=== PATIENT | male | born 1985 | race Caucasian/White ===

== ENCOUNTER 2022-10-24 08:19 | Emergency (ER) | payer OTHER, SELFPAY ==
--- NOTE | ~2022-10-24 | XR_ITS ---
EXAMINATION: XR LUMBOSACRAL SPINE CLINICAL INFORMATION: Back pain. COMPARISON: None available. TECHNIQUE: Three views of the lumbosacral spine. FINDINGS: There is mild straightening of the normal cervical lordosis with normal spinal alignment. L5-S1 shows mild disc space narrowing and minimal grade 1 retrolisthesis. The remainder of the intervertebral disc spaces are unremarkable. The vertebral bodies are intact. The soft tissues are unremarkable. XR/XR lumbar spine 2-3V IMPRESSION: L5-S1 mild disc space narrowing and minimal grade 1 retrolisthesis may be degenerative in nature. No acute abnormality.
[2022-10-24 08:33] VITALS: BP 129/72; PULSE 73; RESP 18; TEMP 36.1; O2SAT 98; BMI 29.9
--- NOTE | 2022-10-24 09:05 | ED.BACK ---
HPI - Back Pain/Injury General Chief Complaint: Back Pain/Injury Stated Complaint: back pain Time Seen by Provider: 10/24/22 08:56 Source: patient and RN notes reviewed Mode of arrival: ambulatory Limitations: no limitations History of Present Illness HPI Narrative: This is a 37-year-old male, without any reported past medical history, who presents to the emergency department today with complaints of low back pain since yesterday. Patient denies any recent trauma, heavy lifting or falls. Patient reports that the pain radiates into his right buttocks and worsens with movement and with palpation. He denies any fevers, chills, chest pain, shortness of breath, abdominal pain, nausea, diarrhea, urinary incontinence, dysuria, hematuria, bowel incontinence or constipation. He denies any numbness or tingling. He denies any saddle paresthesia. No history of similar symptoms in the past. He works in [employer] in the [employer], so he often has to sit for prolonged periods of time. No other complaints or concerns at this time. MD elicited complaint: back pain Timing: constant Severity: moderate Similar Symptoms Previously: No Quality: aching Location: lumbar spine and thoracic spine Radiation: buttocks Exacerbating factors: movement and walking Relieving factors: none Associated symptoms: denies other symptoms Treatments prior to arrival: cold therapy and acetaminophen Work related injury: No Related Data Previous Rx's Medication Instructions Recorded cyclobenzaprine 10 mg tablet 10 mg PO BEDTIME PRN muscle spasm 10/24/22 #10 tabs oxycodone 5 mg capsule 5 mg PO BID PRN severe pain #5 caps 10/24/22 prednisone 20 mg tablet 40 mg PO DAILY #10 tabs 10/24/22 Allergies Allergy/AdvReac Type Severity Reaction Status Date / Time No Known Allergies Allergy Verified 10/24/22 09:03 Review of Systems Review of Systems: Yes all other systems are reviewed and are negative [facility] Social History Social History Advance Directives: No Physical Exam Vital Signs: Vital Signs: Last Vital Signs Temp 97.0 F 10/24/22 08:33 Pulse 73 10/24/22 08:33 Resp 18 10/24/22 08:33 BP 129/72 10/24/22 08:33 Pulse Ox 98 10/24/22 08:33 O2 Del Method Room Air 10/24/22 08:33 BMI result Body Mass Index 29.9 Const: General: cooperative, comfortable, no acute distress and well groomed Limitations: no limitations HEENT: Head: Yes normocephalic and Yes atraumatic Eyes: Conjunctivae: conjunctivae normal Sclerae: sclerae normal Pupils: Equal, round and reactive pupils present EOM: EOMs intact bilaterally Neck: Other: No cervical midline spine tenderness Neck: Yes normal visual inspection and Yes full ROM Chest: Chest palpation & inspection: normal inspection of the chest Resp: Effort & Inspection: normal respiratory effort and able to speak in complete sentences Back/Spine/Pelvis: Other: Mild tenderness to palpation overlying lower midline spine. Tenderness to palpation overlying the right paraspinous muscles with spasm and over the right SI joint. Negative straight leg raise. Strength in lower extremities is 5/5. Skin: General skin exam: no rashes or lesions noted Neuro: Cranial nerves: Yes Equal, round and reactive pupils present Course Reevaluation(s) Reevaluation #1: Lumbar spine x-ray reviewed as L5-S1 mild disc space narrowing and minimal grade 1 retrolisthesis may be degenerative in nature. No acute abnormality. Due to patient's level of discomfort, will treat with prednisone PO, flexeril and oxycodone as needed for severe pain. Advised to take [id number] ibuprofen and Tylenol as needed for pain.. Advised to follow-up with his primary care physician regarding this visit. Encouraged gentle stretching, ice and heat. Patient warned against red flag symptoms and when to return. Patient understands and agrees with plan. Medications Administered Discontinued Medications Generic Name Dose Route Start Last Admin Trade Name Lamontq PRN Reason Stop Dose Admin Ketorolac Tromethamine 30 mg 10/24/22 09:03 10/24/22 09:09 Ketorolac Tromethamine 30 Mg/Ml Vial IM 10/24/22 09:04 30 mg ONCE ONE Administration Medical Decision Making Medical Decision Making [facility] Narrative: 37 yo M presenting to the emergency department with complaints of atraumatic low back pain since yesterday. On exam, patient has tenderness to lumbar midline spine, and tenderness overlying the right paraspinous muscles and right SI joint. Negative straight leg raise. No back pain red flags. Patient is ambulatory with slow, steady gait. Plan: Toradol 30mg IM, and Lumbar spine x-rays ordered. Differential Diagnosis Differential Diagnoses: The differential diagnosis associated with the presentation includes Sciatica, lumbar spasm, lumbar strain, lumbar contusion, cauda equina Independent Interpretation I performed an independent interpretation of an: Plain X-Ray Interpretation: EXAMINATION: XR LUMBOSACRAL SPINE CLINICAL INFORMATION: Back pain. COMPARISON: None available. TECHNIQUE: Three views of the lumbosacral spine. FINDINGS: There is mild straightening of the normal cervical lordosis with normal spinal alignment. L5-S1 shows mild disc space narrowing and minimal grade 1 retrolisthesis. The remainder of the intervertebral disc spaces are unremarkable. The vertebral bodies are intact. The soft tissues are unremarkable. XR/XR lumbar spine 2-3V IMPRESSION: L5-S1 mild disc space narrowing and minimal grade 1 retrolisthesis may be degenerative in nature. No acute abnormality. Discharge Plan Discharge Clinical Impression: Sciatica, Low back pain Patient Disposition: Home, Self-Care Instructions: Sciatica (ED), Acute Low Back Pain (ED) Additional Instructions: Your x-ray today showed L5-S1 mild disc space narrowing and minimal grade 1 retrolisthesis. Please take medications as directed. Take kygi-[id number] ibuprofen and Tylenol as directed as needed for pain. You may take oxycodone as prescribed only for severe pain. Please be advised that flexeril and oxycodone may cause drowsiness. Do not drink alcohol or drive when taking these medications. Please follow-up with your primary care physician. Ice, heat, and gentle stretching may help with the pain. If any new or worsening symptoms occur, please return for re-evaluation. Prescriptions: New prednisone 20 mg tablet 40 mg PO DAILY Qty: 10 0RF cyclobenzaprine 10 mg tablet 10 mg PO BEDTIME PRN (Reason: muscle spasm) Qty: 10 0RF oxycodone 5 mg capsule 5 mg PO BID PRN (Reason: severe pain) Qty: 5 0RF Rx Instructions: Partial Fill upon patient request. Interventions: ED Discharge Assessment Last Done: 10/24/22 10:55 Discharge Date/Time: 10/24/22 10:55
[2022-10-24] MEDS: Ketorolac Tromethamine 30 MG/ML VIAL IM (09:09)
== END 2022-10-24 10:55 | disposition home or self-care (01) ==
PROVIDERS: Emergency Provider Emergency Medicine
DX: M54.41 Lumbago with sciatica, right side (principal); Z79.899 Other long term (current) drug therapy
CPT/HCPCS: 72100; 96372; 99283; 99284; J1885

== ENCOUNTER 2023-03-19 08:13 | Outpatient (AMB) | payer OTHER, SELFPAY ==
[2023-03-19 08:35] VITALS: BP 112/82; PULSE 72; O2SAT 99; BMI 31.5
--- NOTE | 2023-03-19 08:35 | A.OFFPC_ITS ---
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 Reports previous PCP 5 years ago in [place]. Medical history significant for right low back pain and right-sided sciatica. Patient reports right buttock pain radiate to his knee and ankle which is constant for the past 2 months now, although this pain started almost 6 months ago. He denies any injury. Reports taking ibuprofen 600 mg 3 times a day and Tylenol with no improvement in pain. He has finished physical therapy couple weeks ago for 1.5 months with no improvement. He also saw chiropractor. Denies changes in bowel/bladder, no numbness or tingling. Nothing seems to improve this pain. No shortness of breath or chest pain. Patient reports he needs physical therapy order for insurance purposes although he already finished physical therapy for back/right- sided sciatica pain. Denies other concerns at this visit. Patient works in [employer] in [employer]. 09/2022 XR/XR lumbar spine 2-3V IMPRESSION: L5-S1 mild disc space narrowing and minimal grade 1 retrolisthesis may be degenerative in nature. No acute abnormality. [facility] Surgical History H/O splenectomy Hx of tonsillectomy [place] teeth extracted Family History Mother No problems noted. Father No problems noted. Social History Housing: House Patient Tobacco Use Status: Never used Tobacco service: Yes Current occupational status: employed Cognitive needs: No Hearing needs: No Vision needs: No Questionnaire PHQ-9 Over the last 2 weeks, how often have you been bothered by any of the following problems? 1. Little interest or pleasure in doing things: not at all 2. Feeling down, depressed, or hopeless: not at all 3. Trouble falling or staying asleep, or sleeping too much: not at all 4. Feeling tired or having little energy: not at all 5. Poor appetite or overeating: not at all 6. Feeling bad about yourself - or that you are a failure or have let yourself or your family down: not at all 7. Trouble concentrating on things, such as reading the newspaper or watching television: not at all 8. Moving or speaking so slowly that other people could have noticed. Or the opposite - being so fidgety or restless that you have been moving around a lot more than usual: not at all 9. Thoughts that you would be better off or of hurting yourself in some way: not at all Total score: 0 Depression Screening Interpretation: Negative 85274 - PHQ-9 Billing: Yes Source: Developed by Drs. Aleksandar Zamora, Kelsey Hamlin, Gian Schneider and colleagues, with an educational gardenia from [employer]. AUDIT C Alcohol Use Questionnaire (AUDIT-C) 1. How often do you have a drink containing alcohol?: Never 3. How often do you have six or more drinks on one occasion?: Never Total Score: 0 Score Reviewed/Action Taken: No RASHI-7 AMB Questionnaire RASHI-7 Date RASHI - 7 assessed: 03/19/23 Feeling nervous, anxious, or on edge: 0 = Not at all Not being able to stop or control worryin = Not at all Worrying too much about different things: 0 = Not at all Trouble relaxin = Not at all Being so restless that it is hard to sit still: 0 = Not at all Becoming easily annoyed or irritable: 0 = Not at all Feeling afraid as if something awful might happen: 0 = Not at all Total RASHI-7 score (0-4 normal; 5-9 mild; 10-14 moderate; 15-21 severe): 0 Source: Developed by Drs. Aleksandar Zamora, Kelsey Hamlin, Gian Schneider and colleagues, with an educational gardenia from [employer]. RASHI-7 Assessment Billing RASHI-7 Assessment Tool: RASHI-7 Assessment 92886 Review of Systems Const Denies body aches, Denies chills, Denies fever(s) and Denies headache(s) Eyes Denies change in vision ENT Denies dizziness, Denies otalgia, Denies headache(s), Denies nasal discharge, Denies sinus pain and Denies sore throat Card Denies chest pain, Denies edema, Denies lightheadedness and Denies dyspnea Resp Denies cough, Denies dyspnea and Denies wheezing GI Denies abdominal pain, Denies constipation, Denies diarrhea, Denies nausea and Denies vomiting Denies hematuria, Denies difficulty urinating, Denies dysuria and Denies flank pain Musc Reports back pain, Denies myalgias, Denies arthralgias, Denies joint swelling, Denies numbness and Denies tingling Skin/Breast Denies rash Neuro Denies dizziness, Denies headache(s), Denies numbness and Denies tingling Aller/Immun Denies wheezing Physical exam (Primary Care) Vital Signs: Last Vital Signs Pulse 72 03/19/23 08:35 BP 112/82 03/19/23 08:35 Pulse Ox 99 03/19/23 08:35 Oxygen Delivery Method Room Air 03/19/23 08:35 BMI result Body Mass Index 31.5 Tobacco/Smoking Status: Tobacco use Status Tobacco use date assessed 03/19/23 03/19/23 08:41 Patient Tobacco Use Status Never used Tobacco 03/19/23 08:41 PHQ-9: PHQ-9 Score PHQ-9: Total score 0 03/19/23 08:51 Depression Screening Interpretation: Negative Const General: cooperative and no acute distress Orientation/consciousness: patient oriented x3 HENMT Head: Yes normocephalic and Yes atraumatic Ears: TM's normal bilaterally Face and sinus: Yes sinuses nontender Mouth: oropharynx normal and moist mucous membranes Throat: Yes posterior oropharynx normal Eyes General: appearance normal, both eyes and all related structures Pupils: Equal, round and reactive pupils present EOM: EOMs intact bilaterally Neck Neck: Yes normal visual inspection, Yes full ROM and Yes no lymphadenopathy Thyroid: Thyroid normal Resp Effort & Inspection: normal respiratory effort and able to speak in complete sentences Auscultation: clear to auscultation bilaterally, no crackles, no rales, no rhonchi and no wheezes Cardio Rate: regular rate Rhythm: regular rhythm Heart sounds: S1 normal heart sound present, S2 normal heart sound present and no murmurs GI Palpation (GI): Soft to palpation, not firm, nontender, no guarding, not rigid and no hepatosplenomegaly Auscultation: normal bowel sounds General: No CVA tenderness Back/Spine/Pelvis Back: No CVA tenderness Thoracic/Lumbar Spine: pain with thoraco-lumbar ROM, No paraspinal muscle tenderness, No thoracic spinal tenderness, No lumbar spinal tenderness and straight leg raise positive (Right) Skin General skin exam: no rashes or lesions noted Neuro Other: Mild limp noted General: patient oriented x3 Cranial nerves: Yes Equal, round and reactive pupils present Extrem General: Yes full ROM and No edema Assessment and Plan Assessment & Plan (1) Low back pain: Code(s): M54.50 - Low back pain, unspecified Plan: Same as below (2) Right sided sciatica: Code(s): M54.31 - Sciatica, right side Plan: Will treat with prednisone 40 mg for 5 days, ibuprofen 800 mg every 8 hours p.r.n., and cyclobenzaprine 10 mg b.i.d. p.r.n.-educated about drowsiness. Patient has finished physical therapy with no improvement in pain. Will refer urgently to pain management. Encouraged heat/cold packs p.r.n.. Signs and symptoms reviewed when to notify provider or go to the emergency department. Patient agreed with the plan. (3) Encounter to establish care: Code(s): Z76.89 - Persons encountering health services in other specified circumstances Plan: Patient presents to establish care, blood work ordered Plan Follow-up in 3 months for PE labs Orders: Orders Vitamin B12 and Folate Today Z76.89 - Persons encountering health services in other specified circumstances Comprehensive [place]. Panel Fast Today Z76.89 - Persons encountering health services in other specified circumstances Lipid Panel Today Z76.89 - Persons encountering health services in other specified circumstances TSH reflex Free T4 Today Z76.89 - Persons encountering health services in other specified circumstances Vitamin D 25-OH Total Today Z. - Persons encountering health services in other specified circumstances Complete Blood Count Auto Diff Today Z. - Persons encountering health se rvices in other specified circumstances PT Evaluation and Treatment Today M54.31 - Sciatica, right side, M54.50 - Low back pain, unspecified Referrals Pain Management Referral M54.31 - Sciatica, right side, M54.50 - Low back pain, unspecified Medications: New ibuprofen 800 mg PO Q8H PRN 21 tabs 0RF pain M54.31 - Sciatica, right side Changed From cyclobenzaprine 10 mg PO BEDTIME PRN 10 tabs 0RF muscle spasm M54.31 - Sciatica, right side To cyclobenzaprine 10 mg PO BID PRN 14 tabs 0RF muscle spasm M54.31 - Sciatica, right side Refilled prednisone 40 mg (2 x 20 mg) PO DAILY 10 tabs 0RF M54.31 - Sciatica, right side Coding Level of Care Code New Pt Level 3 (00343) Diagnoses Low back pain M54.50 Right sided sciatica M54.31 Encounter to establish care Z. Additional Codes RASHI-7 Assessment Billing - RASHI-7 Assessment Tool: RASHI-7 Assessment [id number] ([id number])
== END 2023-03-19 09:07 | disposition home or self-care (01) ==
PROVIDERS: PCP Nurse Practitioner Family; Visit Provider Nurse Practitioner Family
DX: M54.50 Low back pain, unspecified (principal); M54.31 Sciatica, right side; Z76.89 Persons encountering health services in other specified circumstances
CPT/HCPCS: 99203

== ENCOUNTER 2023-03-19 09:24 | Outpatient (REF) | payer OTHER, SELFPAY ==
[2023-03-19 09:36] LABS: MANUAL DIFF FLAG NO
[2023-03-19 10:02] LABS: Basophils Absolute Auto 0.1 X10*3/uL (0.0-0.2); Eosinophils Absolute Auto 0.3 X10*3/uL (0.0-0.4); Eosinophils Percent Auto 3.6 % (0-4); Hematocrit 42.9 % (42.0-52.0); Hemoglobin 13.8 g/dl (14.0-18.0); Imm Gran Abs Auto 0.02 X10*3/uL (0.00-0.03); Imm Gran Pct Auto 0.2 % (0.0-0.4); Lymphocytes Absolute Auto 2.9 X10*3/uL (1.2-4.9); Lymphocytes Percent Auto 33.7 % (20-40); Mean Corpuscular HGB Conc 32.2 g/dl (31.0-36.0); Mean Corpuscular Hemoglobin 27.8 pg (27.0-33.0); Mean Corpuscular Volume 86.3 fL (80.0-98.0); Mean Platelet Volume 9.7 fL (9.4-12.4); Monocytes Absolute Auto 1.1 X10*3/uL (0.1-1.2); Monocytes Percent Auto 12.8 % (2-11); Neutrophils Absolute Auto 4.2 x10*3/uL (2.0-8.3); Neutrophils Percent Auto 48.7 % (45-73); Platelet Count 430 X10*3/uL (160-400); Red Blood Count 4.97 X10*6/uL (4.60-5.80); Red Cell Distribution Width 13.4 % (11.0-16.0); White Blood Count 8.7 X10*3/uL (4.8-10.8)
[2023-03-19 10:37] LABS: Alanine Aminotransferase 19 U/L (0-40); Albumin Level 4.5 g/dL (3.5-5.0); Alkaline Phosphatase 53 U/L (39-117); Anion Gap 11 (12-20); Aspartate Amino Transferase 16 U/L (5-37); Bilirubin Total 0.5 mg/dL (0.0-1.0); Blood Urea Nitrogen 21 mg/dL (9-16); Calcium 9.5 mg/dL (8.4-10.2); Carbon Dioxide 24 mmol/L (22-29); Chloride 108 mmol/L (96-108); Cholesterol 197 mg/dL (<200); Estimated Glomerular Filt Rate > 60; Glucose Fasting 89 mg/dL (60-99); HDL Cholesterol 46 mg/dL (>40); LDL Cholesterol Calculated 139 mg/dL (<100); Potassium 4.1 mmol/L (3.3-5.1); Sodium 139 mmol/L (135-145); Total Protein 7.7 g/dL (6.5-8.0); Triglycerides 61 mg/dL (<150)
[2023-03-19 10:57] LABS: TSH reflex Free T4 1.26 uIU/mL (0.32-4.0); Vitamin D 25-OH Total 18.6 ng/mL (>30)
[2023-03-19 10:58] LABS: Folate 5.2 ng/mL (> or = 4.0); Vitamin B12 319 pg/mL (200-900)
== END 2023-03-19 09:25 | disposition home or self-care (01) ==
LOC: HO.LAB 09:24
PROVIDERS: PCP Nurse Practitioner Family; Visit Provider Nurse Practitioner Family
DX: M54.31 Sciatica, right side (principal); M54.50 Low back pain, unspecified; Z76.89 Persons encountering health services in other specified circumstances; E55.9 Vitamin D deficiency, unspecified; M54.16 Radiculopathy, lumbar region
CPT/HCPCS: 36415; 80053; 80061; 82306; 82607; 82746; 84443; 85025

== ENCOUNTER 2023-03-28 08:45 | Outpatient (AMB) | payer OTHER, SELFPAY ==
--- NOTE | 2023-03-28 08:49 | A.OFFVIS_ITS ---
Intake Vital Signs 03/28/23 09:00 Height 5 ft 11 in Weight 227 lb BMI 31.7 BP 128/80 Blood Pressure Location Lt brachial Position Sitting Respiration 18 Pulse 95 Pulse Source Pulse Oximeter Pulse Oximetry (%) 98 Oxygen Delivery Method Room Air Intake Visit Reasons: Sciatica, right side Allergies No Known Allergies Allergy (Verified 03/28/23 09:03) HPI HPI Comments History of Present Illness Details Bronson is a very pleasant 37 year old male who presents to the office today for evaluation and management of his right lower back pain. Patient reports the pain started 6 months ago after he went running. Patient was evaluated in the ER and given NSAIDs, muscle relaxer and prednisone. He states the pain improved some, 3 months ago he attempted to run again and the pain returned. Pain is constant, severe and radiates into buttocks, laterally down right leg into the ankle and the right foot to the toes. Patient completed PT without relief 1 month ago. He was seen by PCP 2 weeks ago and given muscle relaxers and prednisone that he has taken without effect. He is currently taking Tylenol and ibuprofen that does not help. He has tried chiropractor which also provided no relief. Reports the pain today is 9/10 with average over the last month rating 9/10. Recent x-ray reviewed, results below. He denies red flag symptoms including loss of bowel, bladder or saddle anesthesia. In terms of muscle damage condition is described as shooting, spasming, sharp, stabbing, throbbing and squeezing. Patient reports the pain is negatively impacting his judgment of life, general activity, mood, work, recreation activities, relationships with people, sleep, walking and ?everything?. Patient currently employed full-time in the [employer]. He denies current use of alcohol, tobacco or illicit substances. Patient denies pacemaker, defibrillator or implantable devices. [facility] Surgical History H/O splenectomy Hx of tonsillectomy [place] teeth extracted Family History Mother No problems noted. Father No problems noted. Social History Housing: House Patient Tobacco Use Status: Never used Tobacco service: Yes Current occupational status: employed Cognitive needs: No Hearing needs: No Vision needs: No Review of Systems Const All systems reviewed & are unremarkable except as noted in HPI and below Physical Exam Vital Signs: Last Vital Signs Pulse 95 03/28/23 09:00 Resp 18 03/28/23 09:00 BP 128/80 03/28/23 09:00 Pulse Ox 98 03/28/23 09:00 Oxygen Delivery Method Room Air 03/28/23 09:00 BMI result Body Mass Index 31.7 General: awake, alert, oriented. Answers questions appropriately. appears uncomfortable. Skin: warm, dry, intact HEENT: Normocephalic. Hearing intact. Cardiac: External chest normal in appearance. Respiratory: No cough, audible wheezing or stridor. Abdomen: without gross distension. Neurological: Oriented to person, place, time and situation. Thought process intact. Psychiatric: Appropriate mood and affect. Good judgment and insight. Back/Spine/Pelvis Other: Lumbar exam: Able to stand on bilateral tiptoes and bilateral heels with increased pain Able to transition from sit to stand unassisted, with slow, deliberate movements Ambulates with antalgic gait Visual inspection without gross abnormality Tender to palpation over right lumbar paraspinal muscles Nontender to palpation over ROM: limited secondary to pain with extension to 5 degrees. flexion to 30 de grees Strength: 4/5 BLE Sensation: intact and symmetric BLE DTR: intact and symmetric Straight leg raises postive bilaterally CLARE positive bilaterally limited physical exam d/t significant pain with provocative testing Results Reviewed Results Reviewed: 10/24/2022 FINDINGS: There is mild straightening of the normal cervical lordosis with normal spinal alignment. L5-S1 shows mild disc space narrowing and minimal grade 1 retrolisthesis. The remainder of the intervertebral disc spaces are unremarkable. The vertebral bodies are intact. The soft tissues are unremarkable. XR/XR lumbar spine 2-3V IMPRESSION: L5-S1 mild disc space narrowing and minimal grade 1 retrolisthesis may be degenerative in nature. No acute abnormality. Assessment & Plan Assessment & Plan (1) Lumbar radiculopathy: Code(s): M54.16 - Radiculopathy, lumbar region Plan Bronson is a very pleasant 29-year-old male who presented to the office today for evaluation management of his right lower back pain. History, physical exam provocative testing consistent with right lumbar radiculopathy. MRI lumbar spine without contrast ordered to further evaluate. Tizanidine 2mg po BID as needed for muscle spasms, do not take with any other muscle relaxers or [employer] depressants. Topical compound cream sent to specialty pharmacy, patient instructed on use. Lidocaine patches sent, do not use with compound cream. TENS unit ordered. Patient instructed on use. Handout with detailed instructions provided to patient. Discussed options for treatment including diagnostic interventional testing, epidural steroid injections, peripheral nerve stimulation with Sprint, RFA and more permanent neuromodulation. Patient will follow up in the office after MRI. Providing no MRI findings that warrant neurosurgical evaluation will plan for Fluoroscopy guided right L5-S1 TFESI with local anesthetic. All questions and concerns have been answered and patient agrees with the plan. Follow up after MRI, sooner if needed. Orders: Orders MR lumbar spine wo con Today M54.16 - Radiculopathy, lumbar region Medications: New tizanidine 2 mg PO BID PRN 60 tabs 0RF muscle spasticity M54.16 - Radiculopathy, lumbar region cream base no.105 (bulk) (Base W301 cream) Diclofenac 5%, Baclofen 5%, Cyclobenzaprine 2%, Gabapentin 6%, Bupivacaine 2% SIG: apply pea-sized amount 3- 5 times daily to painful areas as needed 180 grams 0RF lumbar radiculopathy lidocaine 5% leave on most painful area for up to 12 hrs Do not use with topical compound cream 1 patch topical DAILY 30 ea 0RF Discontinued cyclobenzaprine Discontinued Reason: Doctor's Order 10 mg PO BID PRN 14 tabs 0RF muscle spasm M54.31 - Sciatica, right side Coding Level of Care Code New Pt Level 4 (81229) Diagnoses Lumbar radiculopathy M54.16
[2023-03-28 09:00] VITALS: BP 128/80; PULSE 95; RESP 18; O2SAT 98; BMI 31.7
== END 2023-03-28 09:11 | disposition home or self-care (01) ==
PROVIDERS: PCP Nurse Practitioner Family; Visit Provider Registered Nurse Emergency
DX: M54.16 Radiculopathy, lumbar region (principal)
CPT/HCPCS: 99204

== ENCOUNTER → 2023-03-28 08:45 | Outpatient (BNVA) | payer OTHER, SELFPAY | PROVIDERS: PCP Nurse Practitioner Family; Visit Provider Registered Nurse Emergency | DX: M54.16 Radiculopathy, lumbar region (principal) | CPT/HCPCS: 99202 ==

== ENCOUNTER 2023-04-08 13:47 | Outpatient (AMB) | payer OTHER, SELFPAY ==
--- NOTE | 2023-04-08 13:49 | A.OFFPC_ITS ---
Vital Signs 04/08/23 13:52 Height 5 ft 11 in Weight 226 lb 2 oz BMI 31.5 BP 120/70 Blood Pressure Location Lt brachial Position Sitting Pulse 96 Pulse Source Pulse Oximeter Pulse Oximetry (%) 97 Oxygen Delivery Method Room Air Intake Visit Reasons: right leg pain for 2 months Intake Note: Patient is here today for right leg pain ongoing for 2 months. OTC, lidocaine patches nor tizanidine is not helping with pain. Corrosion Prevention Metal Sprayer Required: No Spring Former Hand: Not Required per policy Accompanied by: Self / Same As Patient Allergies No Known Allergies Allergy (Verified 04/08/23 13:51) Tobacco use date assessed: 04/08/23 HPI HPI Comments History of Present Illness Details 37-year-old male past medical history si gnificant for right-sided sciatic on lumbar radiculopathy. Patient of Nadia REBOLLAR presents today for lumbar radiculopathy radiating down right leg which started approximately 6 months ago. Patient has completed physical therapy in the past and with no improvement and has tried muscle relaxers, prednisone, Tylenol and ibuprofen and chiropractor with no relief. Patient was then referred to pain management, review of the notes. Patient was seen by pain management MRI of the lumbar spine was ordered and patient reports was completed over the weekend. Patient was recommended by Pain Management to use Lidoderm patches, Tens unit and muscle relaxers as needed. Based on MRI results they further discussed steroid injections, peripheral nerve stimulator with sprint, RFA and more permanent neuromodulation. Patient was advised to follow-up with them after MRI. Patient advised to call Pain Management to follow-up with them [facility] Surgical History [place] teeth extracted Hx of tonsillectomy H/O splenectomy Family History (Updated 04/08/23 @ 13:49 by UZIEL Grant) Mother No problems noted. Father No problems noted. Social History (Updated 04/08/23 @ 13:50 by UZIEL Grant) Housing: House Alcohol intake: never Patient Tobacco Use Status: Never used Tobacco e-Cigarette/Vaping Use: Never Used Second Hand Smoke Exposure: No service: Yes Current occupational status: employed Cognitive needs: No Hearing needs: No Vision needs: No Questionnaire RASHI-7 AMB Questionnaire RASHI-7 Date RASHI - 7 assessed: 03/19/23 Source: Developed by Drs. Aleksandar Zamora, Kelsey Hamlin, Gian Schneider and colleagues, with an educational gardenia from [employer]. Review of Systems Const Denies chills, Denies fatigue, Denies fever(s) and Denies poor appetite Eyes Denies no additional complaints ENT Reports Normal hearing present Card Denies chest pain, Denies syncope, Denies rapid heart rate and Denies dyspnea Resp Denies cough and Denies dyspnea GI Denies change in stool character, Denies constipation, Denies diarrhea, Denies nausea and Denies vomiting Denies dysuria, Denies urinary frequency and Denies urinary urgency Neuro Reports Normal hearing present, Denies confusion and Denies syncope Psych Denies confusion Endo Denies fatigue Physical exam (Primary Care) Vital Signs: Last Vital Signs Pulse 96 04/08/23 13:52 BP 120/70 04/08/23 13:52 Pulse Ox 97 04/08/23 13:52 Oxygen Delivery Method Room Air 04/08/23 13:52 BMI result Body Mass Index 31.5 Tobacco/Smoking Status: Tobacco use Status Tobacco use date assessed 04/08/23 04/08/23 13:51 Patient Tobacco Use Status Never used Tobacco 04/08/23 13:51 e-Cigarette/Vaping Use Never Used 04/08/23 13:51 Const General: No confusion Orientation/consciousness: No confusion HENMT Head: Yes normocephalic and Yes atraumatic Eyes Conjunctivae: conjunctivae normal Chest Chest palpation & inspection: normal inspection of the chest Resp Effort & Inspection: normal respiratory effort Auscultation: clear to auscultation bilaterally, no crackles, no rhonchi and no wheezes Cardio Rate: regular rate Rhythm: regular rhythm Heart sounds: S1 normal heart sound present and S2 normal heart sound present GI Inspection: Yes normal to inspection Neuro General: No confusion Cranial nerves: Yes Normal hearing present Extrem General: No edema Assessment and Plan Assessment & Plan (1) Lumbar radiculopathy: Code(s): M54.16 - Radiculopathy, lumbar region Plan: Patient advised to follow up with pain management for MRI results and further recommendations. Coding Level of Care Code Est Pt Level 3 (58794) Diagnoses Lumbar radiculopathy M54.16
[2023-04-08 13:52] VITALS: BP 120/70; PULSE 96; O2SAT 97; BMI 31.5
== END 2023-04-08 14:17 | disposition home or self-care (01) ==
PROVIDERS: PCP Nurse Practitioner Family; Visit Provider Nurse Practitioner Family
DX: M54.16 Radiculopathy, lumbar region (principal)
CPT/HCPCS: 99213

== ENCOUNTER 2023-04-24 08:45 | Outpatient (AMB) | payer OTHER, SELFPAY ==
[2023-04-24 08:53] VITALS: BP 148/98; PULSE 95; RESP 18; O2SAT 97; BMI 32.4
--- NOTE | 2023-04-24 08:53 | A.OFFVIS_ITS ---
Intake Vital Signs 3 04/24/23 08:53 Height 5 ft 11 in Weight 232 lb BMI 32.4 BP 148/98 H Blood Pressure Location Lt radial Position Sitting Respiration 18 Pulse 95 Pulse Source Pulse Oximeter Pulse Oximetry (%) 97 Oxygen Delivery Method Room Air Intake Visit Reasons: Discuss MRI Results/CONFIRMED Allergies No Known Allergies Allergy (Verified 04/24/23 08:54) HPI HPI Comments 2 History of Present Illness0 Details Bronson presents back to the office today for follow up lumbar radiculopathy. MRI reviewed with patient today. Patient reports that pain persists, does not improve with any medications including NSAIDS, lidocaine patches or muscle relaxers. Pain constant, 8/10 today, with radiation down the right leg to the toes. He has been working but states he is in constant pain throughout the day. Denies red flag symptoms including loss of bowel, bladder or saddle anesthesia. Prior: Bronson is a very pleasant 37 year old male who presents to the office today for evaluation and management of his right lower back pain. Patient reports the pain started 6 months ago after he went running. Patient was evaluated in the ER and given NSAIDs, muscle relaxer and prednisone. He states the pain improved some, 3 months ago he attempted to run again and the pain returned. Pain is constant, severe and radiates into buttocks, laterally down right leg into the ankle and the right foot to the toes. Patient completed PT without relief 1 month ago. He was seen by PCP 2 weeks ago and given muscle relaxers and prednisone that he has taken without effect. He is currently taking Tylenol and ibuprofen that does not help. He has tried chiropractor which also provided no relief. Reports the pain today is 9/10 with average over the last month rating 9/10. Recent x-ray reviewed, results below. He denies red flag symptoms including loss of bowel, bladder or saddle anesthesia. In terms of muscle damage condition is described as shooting, spasming, sharp, stabbing, throbbing and squeezing. Patient reports the pain is negatively impacting his judgment of life, general activity, mood, work, recreation activities, relationships with people, sleep, walking and ?everything?. Patient currently employed full-time in [employer]. He denies current use of alcohol, tobacco or illicit substances. Patient denies pacemaker, defibrillator or implantable devices. [facility] Surgical History [place] teeth extracted Hx of tonsillectomy H/O splenectomy Family History (Updated 04/08/23 @ 13:49 by UZIEL Grant) Mother No problems noted. Father No problems noted. Social History (Updated 04/08/23 @ 13:50 by UZIEL Grant) Housing: House Alcohol intake: never Patient Tobacco Use Status: Never used Tobacco e-Cigarette/Vaping Use: Never Used Second Hand Smoke Exposure: No service: Yes Current occupational status: employed Cognitive needs: No Hearing needs: No Vision needs: No Review of Systems Const All systems reviewed & are unremarkable except as noted in HPI and below Physical Exam Vital Signs: Last Vital Signs Pulse 95 04/24/23 08:53 Resp 18 04/24/23 08:53 BP 148/98 H 04/24/23 08:53 Pulse Ox 97 04/24/23 08:53 Oxygen Delivery Method Room Air 04/24/23 08:53 BMI result Body Mass Index 32.4 General: awake, alert, oriented. Answers questions appropriately. patient appears uncomfortable, tearful throughout visit. Skin: warm, dry, intact HEENT: Normocephalic. Hearing intact. Cardiac: External chest normal in appearance. Respiratory: No cough, audible wheezing or stridor. Abdomen: without gross distension. Neurological: Oriented to person, place, time and situation. Thought process intact. Psychiatric: Appropriate mood and affect. Good judgment and insight. Back/Spine/Pelvis Other: Lumbar exam: Able to stand on bilateral tiptoes and bilateral heels but with pain Able to transition from sit to stand unassisted, slowly with pain increase Ambulates with antalgic gait Visual inspection without gross abnormality Tender to palpation over right lumbar paraspinal muscles Straight leg raises with and without dorsiflexion positive CLARE positive bilaterally limited physical exam d/t significant pain with provocative testing Results Reviewed Results Reviewed: 04/05/2023 Assessment & Plan Assessment & Plan (1) Lumbar radiculopathy: Code(s): M54.16 - Radiculopathy, lumbar region (2) Lumbar spondylosis: Code(s): M47.816 - Spondylosis without myelopathy or radiculopathy, lumbar region Plan Bronson is a very pleasant 37 year old male who presented back to the office today for follow up, review of MRI. Patient continues to endorse significant pain that is refractory to PT, NSAIDs, lidocaine patches, TENS unit and muscle relaxers. He is visible uncomfortable, tearful during visit and favoring right leg. Will send short script of Percocet 5/325mg to take as needed for pain. Patient advised on precautions for use. He has been advised this is a one time prescription and not something we will continue prescribing. Work note provided to patient. Discussed options for treatment including diagnostic interventional testing, epidural steroid injections, peripheral nerve stimulation with Sprint, RFA and more permanent neuromodulation. Schedule for Fluoroscopy guided right L5-S1 TFESI with propofol sedation given patients inability to remain prone and stationary for the injection under local anesthetic only. Neurosurgery consult placed for evaluation due to patient's significant sustained discomfort and disability. All questions and concerns have been answered and patient agrees with the plan. Follow up after injection, sooner if needed. Orders: Referrals 2 Neuro Spine Referral M54.16 - Radiculopathy, lumbar region Medications: New 2 oxycodone-acetaminophen 5-325 mg (Percocet) Partial Fill upon patient request. 1 tab PO TID PRN 20 tabs 0RF pain Coding Level of Care Code Est Pt Level 4 (41090) Diagnoses Lumbar radiculopathy M54.16 Lumbar spondylosis M47.816
== END 2023-04-24 09:14 | disposition home or self-care (01) ==
PROVIDERS: PCP Nurse Practitioner Family; Visit Provider Registered Nurse Emergency
DX: M54.16 Radiculopathy, lumbar region (principal); M47.816 Spondylosis without myelopathy or radiculopathy, lumbar region
CPT/HCPCS: 99214

== ENCOUNTER → 2023-04-24 08:45 | Outpatient (BNVA) | payer OTHER, SELFPAY | PROVIDERS: PCP Nurse Practitioner Family; Visit Provider Registered Nurse Emergency | DX: M47.26 Other spondylosis with radiculopathy, lumbar region (principal) | CPT/HCPCS: 99212 ==

== ENCOUNTER 2023-04-25 10:53 | Day surgery (SDC) | payer OTHER, SELFPAY ==
--- NOTE | ~2023-04-25 | FL_ITS ---
EXAMINATION: XR FLUOROSCOPY WITH IMAGES CLINICAL INFORMATION: L5-S1 TFESI, right. COMPARISON: None available. TECHNIQUE: Fluoroscopy Supervised By: Dr. Aden Gregg. Fluoroscopy Time: 0.2 minutes. Cumulative Dose: 12.1 mGy. DAP: 3.30 Gycm2. Images: 2. FINDINGS: Images demonstrate needle/probe placement and contrast injection adjacent to the right L5-S1 vertebrae. FL/FL guidance in OR IMPRESSION: Fluoroscopy guidance for pain management procedure
[2023-04-25 11:02] VITALS: BMI 32.1
[2023-04-25 11:03] VITALS: BP 147/97; PULSE 95; RESP 16; TEMP 37.5; O2SAT 96
[2023-04-25] MEDS: Lactated Ringers 1,000 ML 80 ML IVCONT (11:42)
--- NOTE | 2023-04-25 12:22 | P.CONAN_ITS ---
HPI - Anesthesia Eval Consult details Narrative: fortransforaminal tone PMFSH Active Problems Active Problems: All Active Problems (Updated 04/24/23 @ 10:05 by Ayse Ruiz APRN, [employer]) Lumbar spondylosis (Acute) Lumbar radiculopathy (Acute) Low vitamin D level (Acute) Right sided sciatica (Acute) Encounter to establish care (Acute) Family History Family History Mother No problems noted. Father No problems noted. Family history of problems with anesthesia: No Surgical History Surgical History [place] teeth extracted Hx of tonsillectomy H/O splenectomy History of Problems with Anesthesia: No Social History Social History Housing: House Alcohol intake: never Patient Tobacco Use Status: Never used Tobacco e-Cigarette/Vaping Use: Never Used Second Hand Smoke Exposure: No Use of substances other than those prescribed or required for medical reasons: No Are you DNR?: No Advance Directives: No Advance Directives Information Provided: Yes service: Yes Current occupational status: employed Cognitive needs: No Hearing needs: No Vision needs: No Meds Allergies Allergy/AdvReac Type Severity Reaction Status Date / Time No Known Allergies Allergy Verified 04/25/23 10:59 Active Medications: Current Medications Lactated Ringer's (Lr) 1,000 mls @ 80 mls/hr IVCONT .[id number] DOROTHY Last Admin: 04/25/23 11:42 Dose: 80 mls/hr Exam Exam Date and Time: April 25, 2023 1222 Height,Weight and Vital Signs: Height 5 ft 11 in Weight 104.326 kg Last Vital Signs Temp 99.5 F 04/25/23 11:03 Pulse 95 04/25/23 11:03 Resp 16 04/25/23 11:03 BP 147/97 H 04/25/23 11:03 Pulse Ox 96 04/25/23 11:03 O2 Del Method Room Air 04/25/23 11:03 Airway Mallampati Class: II TM Dist: >3cm Neck ROM: Full Heart: rrr Lungs: cta Assessment and Plan Assessment Anesthesia Assessment: Anesthesia Plan Discussed and Chart Reviewed Final Anesthetic Review Family History of Problems with Anesthesia: No History of Problems with Anesthesia: No NPO: Yes ASA Class: II Final Preanesthetic Review: No Changes in Pt Med Stat, Meds/Allgs Chart Reviewed, Consent Obtained/Reviewed and Anes Risks/Benef Reviewed Patient Risk: Low Procedure Risk: Intermediate Anesthetic Plan Anesthetic Plan: MAC: Disposition: Standard PACU
--- NOTE | 2023-04-25 12:23 | MHC.SHP ---
Pre-Procedural Eval Section A Date of Service: 04/25/23 The patient is an INPATIENT: No Changes since office visit: Yes Patient answered all questions The History & Physical has been completed within 30 days and I have reviewed it.: No Section B Chief Complaint: Radiculopathy, lumbar region Details of Present Illness: as above Relevant Family History (Specify if Yes): No Relevant Social History: None Present Medications: None Medical History: No relevant PMH History of Previous Operations: No relevant previous surgery Allergies: Allergies Allergy/AdvReac Type Severity Reaction Status Date / Time No Known Allergies Allergy Verified 04/25/23 10:59 Review of Systems Sugical H&P ROS: Negative: Constitution, Cardiovascular, Respiratory, Neurological, Psychiatric, Hem-Onc, Allergic/Immunologic, Gastrointestinal, Genitourinary, Integumentary, Endocrine and Eyes/Ears/Nose/Throat and Yes, Specify: Musculoskeletal (disc degeneration lumbar) Exam Surgical H&P Exam: Normal: HEENT, Normal: Heart, Normal: Lungs, Normal: Extremities, Normal: Abdomen, Normal: Skin and Normal: Neurological Plan Diagnosis/Plan: Unchanged I have reviewed the history and physical and performed a pertinent physical examination on my patient. No changes have occurred unless specified. Time Spent With Patient Time: Total time managing care of this patient today ___5_ minutes.
[2023-04-25 13:02] VITALS: BP 122/87; PULSE 89; RESP 16; TEMP 37.2; O2SAT 96
--- NOTE | 2023-04-25 13:05 | P.BOP_ITS ---
Brief Operative Note Date of Service: 04/25/23 Pre-op diagnosis: radiculopathy lumbar Post-op diagnosis: same Procedure: TFESI L5- S1 on the right. Surgeon: Aden Gregg MD Anesthesia: MAC Was an Staple Fiber Washer used for this Procedure?: No Estimated blood loss (mL): 0 Condition: stable Disposition: PACU
--- NOTE | 2023-04-25 13:06 | W.PM.OPN ---
Operative Note Operative Note Date of Service: 04/25/23 Narrative: right L5- S1 Transforaminal epidural steroid injection Informed consent was thoroughly explained to the patient before the procedure. The patient came to the operating room. he was positioned prone on operating table with a pillow under her abdomen. ASA monitors were applied and patient was minimally to moderately sedated. I was able to maintain conversation with this patient throughout the procedure. Time-out was performed delineating correct site and side of the procedure, nature of the injection, name and date of of the patient. The lower back of the patient was prepped with ChloraPrep and draped with sterile utility towels. C-arm was brought over the operating field and sq picture of L5 vertebra was demonstrated on the screen. The Right side was chosen as the side of the injection. Tilting machine ipsilateral to the right at the level of L5 the most prominent picture of the left S1 superior articular process was obtained on the screen. At the projection of the lateral border of the SAP S1 to the skin small amount of lidocaine 1% 3-4 cc was injected to anesthetize the skin and s/q tissues. After that 5 in 22 gauge Quincke point needle was inserted through the skin wheal and was advanced to the L5-S1 foramina on anterior posterior and oblique views intermittently.When needle tip contacted the bone the needle was deviated laterally and after that medially to advance it below the SAP and into the L5- S1 foramina. When tip of the needle entered foramina projection on AP view injection of the contrast was performed demonstrating epidural spread of the contrast. After that injection of the treatment medicine 3 cc of preservative-free lidocaine 1% mixed with Kenalog 40 mg was injected into the foramina. Injection of the contrast and injection of the treatment medicine was observed live on the screen. No intrathecal and no intravascular spread of the contrast was noted. The needle was removed and bandaid was applied the patient tolerated procedure well.
[2023-04-25 13:17] VITALS: BP 131/76; PULSE 87; RESP 16; O2SAT 96
[2023-04-25 13:32] VITALS: BP 120/84; PULSE 94; RESP 16; O2SAT 96
[2023-04-25 13:46] VITALS: BP 129/80; PULSE 86; RESP 16; TEMP 37.2; O2SAT 96
== END 2023-04-25 14:15 | disposition home or self-care (01) ==
PROVIDERS: PCP Nurse Practitioner Family; Visit Provider Anesthesiology
PROC: (CPT 64483; principal; 2023-04-25 12:30)
DX: M54.16 Radiculopathy, lumbar region (principal); M47.816 Spondylosis without myelopathy or radiculopathy, lumbar region; Z79.899 Other long term (current) drug therapy
CPT/HCPCS: 64483; J2250; J3301; Q9965; Q9967

== ENCOUNTER → 2023-04-25 10:53 | Outpatient (BNV) | payer OTHER, SELFPAY | PROVIDERS: PCP Nurse Practitioner Family; Visit Provider Anesthesiology | DX: M54.16 Radiculopathy, lumbar region (principal) | CPT/HCPCS: 64483 ==

== ENCOUNTER 2023-05-27 08:07 | Outpatient (AMB) | payer OTHER, SELFPAY ==
[2023-05-27 08:27] VITALS: PULSE 110; RESP 12; O2SAT 95; BMI 31.9
--- NOTE | 2023-05-27 08:27 | A.OFFVIS_ITS ---
Intake Vital Signs 3 05/27/23 08:27 Height 5 ft 11 in Weight 229 lb BMI 31.9 Blood Pressure Location Rt brachial Position Sitting Respiration 12 Pulse 110 H Pulse Source Pulse Oximeter Pulse Oximetry (%) 95 Oxygen Delivery Method Room Air Intake Visit Reasons: S/p (R) L5-S1 TFESI 04/25/23/confirmed Allergies No Known Allergies Allergy (Verified 05/27/23 08:28) Medication List - Last Reconciled 05/27/23 by Amber Hernandes LPN cholecalciferol (vitamin D3) 25 mcg PO DAILY lidocaine 5% 1 patch topical DAILY HPI HPI Comments 2 History of Present Illness0 Details Bronson presents to the office today for follow up L5-S1 TFESI 04/25/23. Patient reports 50% improvement in pain since the injection. He states since procedure he has been able to stand for longer than 1-2 minutes without excruciating pain. He reports improvement in function, mobility and ability to perform activities of daily living. He does endorse continued pain just not as bad . He has an appointment with neurosurgery in 1 week for evaluation. Prior: Bronson presents back to the office today for follow up lumbar radiculopathy. MRI reviewed with patient today. Patient reports that pain persists, does not improve with any medications including NSAIDS, lidocaine patches or muscle relaxers. Pain constant, 8/10 today, with radiation down the right leg to the toes. He has been working but states he is in constant pain throughout the day. Denies red flag symptoms including loss of bowel, bladder or saddle anesthesia. Prior: Bronson is a very pleasant 37 year old male who presents to the office today for evaluation and management of his right lower back pain. Patient reports the pain started 6 months ago after he went running. Patient was evaluated in the ER and given NSAIDs, muscle relaxer and prednisone. He states the pain improved some, 3 months ago he attempted to run again and the pain returned. Pain is constant, severe and radiates into buttocks, laterally down right leg into the ankle and the right foot to the toes. Patient completed PT without relief 1 month ago. He was seen by PCP 2 weeks ago and given muscle relaxers and prednisone that he has taken without effect. He is currently taking Tylenol and ibuprofen that does not help. He has tried chiropractor which also provided no relief. Reports the pain today is 9/10 with average over the last month rating 9/10. Recent x-ray reviewed, results below. He denies red flag symptoms including loss of bowel, bladder or saddle anesthesia. In terms of muscle damage condition is described as shooting, spasming, sharp, stabbing, throbbing and squeezing. Patient reports the pain is negatively impacting his judgment of life, general activity, mood, work, recreation activities, relationships with people, sleep, walking and ?everything?. Patient currently employed full-time in [employer]. He denies current use of alcohol, tobacco or illicit substances. Patient denies pacemaker, defibrillator or implantable devices. [facility] Surgical History [place] teeth extracted Hx of tonsillectomy H/O splenectomy Family History Mother No problems noted. Father No problems noted. Social History Housing: House Alcohol intake: never Patient Tobacco Use Status: Never used Tobacco e-Cigarette/Vaping Use: Never Used Second Hand Smoke Exposure: No service: Yes Current occupational status: employed Cognitive needs: No Hearing needs: No Vision needs: No Review of Systems Const All systems reviewed & are unremarkable except as noted in HPI and below Physical Exam Vital Signs: Last Vital Signs Pulse 110 H 05/27/23 08:27 Resp 12 05/27/23 08:27 Pulse Ox 95 05/27/23 08:27 Oxygen Delivery Method Room Air 05/27/23 08:27 BMI result Body Mass Index 31.9 General: awake, alert, oriented. Answers questions appropriately. patient appears uncomfortable, tearful throughout visit. Skin: warm, dry, intact HEENT: Normocephalic. Hearing intact. Cardiac: External chest normal in appearance. Respiratory: No cough, audible wheezing or stridor. Abdomen: without gross distension. LS: able to transition from sit to stand unassisted, does utilize the arms of the chair for support ambulates with slow steady gait Neurological: Oriented to person, place, time and situation. Thought process intact. Psychiatric: Appropriate mood and affect. Good judgment and insight. Results Reviewed Results Reviewed: 04/05/2023 Assessment & Plan Assessment & Plan (1) Lumbar radiculopathy: Code(s): M54.16 - Radiculopathy, lumbar region (2) Lumbar spondylosis: Code(s): M47.816 - Spondylosis without myelopathy or radiculopathy, lumbar region Plan Bronson is a very pleasant 37 year old male who presented back to the office today for follow up after L5-S1 TFESI 04/25/2023 Patient failed conservative therapy including PT, NSAIDs, muscle relaxers, TENS unit. He reports 50% improvement after TFESI with some improvement in mobility and function though he continues to endorse daily pain that impedes his work, physical activities and mood. Follow up with Neurosurgery as planned All questions and concerns have been answered and patient agrees with the plan. Follow up in the office for worsening pain, can repeat TFESI after 07/25/23. Coding Level of Care Code Est Pt Level 3 (25145) Diagnoses Lumbar radiculopathy M54.16 Lumbar spondylosis M47.816
== END 2023-05-27 08:40 | disposition home or self-care (01) ==
PROVIDERS: PCP Nurse Practitioner Family; Visit Provider Registered Nurse Emergency
DX: M54.16 Radiculopathy, lumbar region (principal); M47.816 Spondylosis without myelopathy or radiculopathy, lumbar region
CPT/HCPCS: 99213

== ENCOUNTER → 2023-05-27 08:07 | Outpatient (BNVA) | payer OTHER, SELFPAY | PROVIDERS: PCP Nurse Practitioner Family; Visit Provider Registered Nurse Emergency | DX: M54.16 Radiculopathy, lumbar region (principal); M47.816 Spondylosis without myelopathy or radiculopathy, lumbar region | CPT/HCPCS: 99212 ==

== ENCOUNTER 2023-06-06 09:11 | Outpatient (AMB) | payer OTHER, SELFPAY ==
--- NOTE | 2023-06-06 09:35 | HO.SPINEOV ---
Intake Intake Visit Reasons: radiculopathy Intake Note: Mr. Rivers is here today c/o low back pain radiating into right leg. MRI done @ [facility]/brought disc. Circuit Recorder Required: No Allergies No Known Allergies Allergy (Verified 05/27/23 08:28) Assessment & Plan Assessment & Plan (1) Lumbar radiculopathy: Code(s): M54.16 - Radiculopathy, lumbar region Plan Dear Ayse, Thank you for referring Mr Rivers to our office today. 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 He felt something painful in his low back but over the course of a day or so that turned into his severe pain going down the back of his leg into his outer calf. He ultimately went to an urgent care center and was prescribed oxycodone, Motrin and PT. None of these things helped. Ultimately he ended up in your office and underwent a right L5-S1 TFE. That did give him decent relief temporarily. He is continuing to pavon with daily pain and being unable to walk normally secondary to discomfort. It does bother him at night as well. It bothers him when he is at work. He is very frustrated with his quality of life at this point. He had an [facility] showing herniated disc on the right at L5-S1 and was referred to us for evaluation. PMH: He had a spleen removed in his tonsils removed but other than that he is healthy Social hx: He does not smoke Medications: He takes vitamin-D and [id number]-[id number] medications as needed Allergies: None Physical exam: Awake alert oriented, walks with an antalgic gait, strength is normal but he has absent right Achilles reflex Imaging review: Lumbar MRI done at [facility] shows that he has a right paracentral disc herniation posteriorly displacing the right S1 nerve root. The disc itself is degenerative. 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 It did respond temporarily to an L5-S1 TFE. The affect was somewhat temporary but did give him 50% improvement. He has been through all the usual conservative treatments and is still having a significant amount of pain on a daily basis. Typically the something Dr. Romero would offer him a right L5-S1 diskectomy. I will review the imaging with Dr. Romero, but I offered him a date for surgery. Pt was given risk and benefits of surgery including but not limited to infection, hematoma , nerve injury,durotomy, weakness,bowel/bladder injury, persistent pain, recurrent disc herniation as well as the option to continue with conservative treatment and patient wishes to proceed with surgery. Pt is aware they should stop their motrin, aspirin 7 days prior to surgery. All questions were answered to the best of our ability. If there is anything about this patients medical history that we have overlooked or concerns you have about us proceeding with surgery we would appreciate any input you can offer. Thank you for allowing us to care for your patient. The total time spent with this visit with this patient was 45 minutes reviewing history, physical exam, lumbar imaging review, and implementation of treatment plan or further diagnostic testing Tomas Romero MD,PhD [facility] Coding Level of Care Code New Pt Level 4 (77505) Diagnoses Lumbar radiculopathy M54.16
== END 2023-06-06 09:59 | disposition home or self-care (01) ==
PROVIDERS: PCP Nurse Practitioner Family; Referring Provider Registered Nurse Emergency; Visit Provider Physician Assistant
DX: M54.16 Radiculopathy, lumbar region (principal)
CPT/HCPCS: 99204

== ENCOUNTER → 2023-06-06 09:11 | Outpatient (BNVA) | payer OTHER, SELFPAY | PROVIDERS: PCP Nurse Practitioner Family; Referring Provider Registered Nurse Emergency; Visit Provider Physician Assistant | DX: M54.16 Radiculopathy, lumbar region (principal) | CPT/HCPCS: 99202 ==

== ENCOUNTER 2023-06-25 09:18 | Outpatient (AMB) | payer OTHER, SELFPAY ==
[2023-06-25 09:29] VITALS: BP 112/70; PULSE 82; O2SAT 97; BMI 31.9
--- NOTE | 2023-06-25 09:29 | MHC.PC.OV ---
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 Frame: Not Required per policy Accompanied by: Self / Same As Patient Allergies No Known Allergies Allergy (Verified 06/25/23 09:40) Medication List - Last Reconciled 06/25/23 by KAYLA Mathew cholecalciferol (vitamin D3) 25 mcg PO DAILY Tobacco use date assessed: 04/08/23 Dental Screening Dental Screen Date: 06/25/23 Did you have a dental visit in the last 12 months?: Yes Did you have a dental problem in the last 6 months where you did not have access to dental care?: No Was dental information given to patient?: Patient has dentist HPI Annual exam HPI Details Patient is a 38-year-old male who presents today for physical exam. Medical history significant for low vitamin-D level, lumbar radiculopathy-followed by [facility]-patient reports will be having back surgery 08/2023. Reports tetanus vaccine in the last 10 years. Dental exam up-to-date. Denies problems with his eyes, does not see eye doctor. No shortness of breath or chest pain. [facility] Medical History Encounter to establish care Surgical History [place] teeth extracted Hx of tonsillectomy H/O splenectomy Family History Mother No problems noted. Father No problems noted. Social History Housing: House Alcohol intake: never Patient Tobacco Use Status: Never used Tobacco e-Cigarette/Vaping Use: Never Used Second Hand Smoke Exposure: No service: Yes Current occupational status: employed Cognitive needs: No Hearing needs: No Vision needs: No Questionnaire Thrive Questionnaire Date Thrive assessed: 06/25/23 I am a: Patient What is your living situation today?: I have a steady place to live Within the past 12 months, did the food you bought not last and you didn't have the money to get more?: Never true Within the past 12 months, did you worry whether your food would run out before you got money to buy more?: Never true Do you have trouble paying for medicines?: No Do you have trouble getting transportation to medical appointments?: No Do you have trouble paying your heating and electricity bill?: No Do you have trouble taking care of your child, family member or friend?: No Do you have trouble with day-to-day activities such as bathing, preparing meals, shopping, managing finances, etc.?: No Are you currently unemployed and looking for a job?: No Are you interested in more education?: No Please select the resources that you would like help with: None Currently or been in a relationship where the following occur: no concerns reported RASHI-7 AMB Questionnaire RASHI-7 Date RASHI - 7 assessed: 03/19/23 Source: Developed by Drs. Aleksandar Zamora, Kelsey Hamlin, Gian Schneider and colleagues, with an educational gardenia from [employer]. Review of Systems Const Denies body aches, Denies chills, Denies fever(s) and Denies headache(s) Eyes Denies change in vision ENT Denies dizziness, Denies otalgia, Denies headache(s), Denies nasal discharge, Denies sinus pain and Denies sore throat Card Denies chest pain, Denies edema, Denies lightheadedness and Denies dyspnea Resp Denies cough, Denies dyspnea and Denies wheezing GI Denies abdominal pain, Denies constipation, Denies diarrhea, Denies nausea and Denies vomiting Denies dysuria Musc Reports back pain and Denies myalgias Skin/Breast Denies rash Neuro Denies dizziness and Denies headache(s) Aller/Immun Denies wheezing Physical exam (Primary Care) Vital Signs: Last Vital Signs Pulse 82 06/25/23 09:29 BP 112/70 06/25/23 09:29 Pulse Ox 97 06/25/23 09:29 Oxygen Delivery Method Room Air 06/25/23 09:29 BMI result Body Mass Index 31.9 Tobacco/Smoking Status: Tobacco use Status Tobacco use date assessed 04/08/23 06/25/23 09:34 Patient Tobacco Use Status Never used Tobacco 06/25/23 09:34 e-Cigarette/Vaping Use Never Used 06/25/23 09:34 Thrive Assessment: Date of Thrive Assessment Date Thrive assessed 06/25/23 06/25/23 09:34 Currently or been in a relationship where the following occur: no concerns reported Const General: cooperative and no acute distress Orientation/consciousness: patient oriented x3 HENMT Head: Yes normocephalic and Yes atraumatic Ears: TM's normal bilaterally Face and sinus: Yes sinuses nontender Mouth: oropharynx normal and moist mucous membranes Throat: Yes posterior oropharynx normal Eyes General: appearance normal, both eyes and all related structures Pupils: Equal, round and reactive pupils present EOM: EOMs intact bilaterally Neck Neck: Yes normal visual inspection, Yes full ROM and Yes no lymphadenopathy Thyroid: Thyroid normal Resp Effort & Inspection: normal respiratory effort and able to speak in complete sentences Auscultation: clear to auscultation bilaterally, no crackles, no rales, no rhonchi and no wheezes Cardio Rate: regular rate Rhythm: regular rhythm Heart sounds: S1 normal heart sound present, S2 normal heart sound present and no murmurs GI Palpation (GI): Soft to palpation, not firm, nontender, no guarding, not rigid and no hepatosplenomegaly Auscultation: normal bowel sounds General: No CVA tenderness Back/Spine/Pelvis Back: No CVA tenderness Skin General skin exam: no rashes or lesions noted Neuro General: patient oriented x3 Cranial nerves: Yes Equal, round and reactive pupils present Gait exam (Neuro): Normal gait present Extrem General: Yes full ROM and No edema Assessment and Plan Assessment & Plan (1) Lumbar radiculopathy: Code(s): M54.16 - Radiculopathy, lumbar region Plan: Continue to follow-up with [facility] (2) Low vitamin D level: Code(s): R79.89 - Other specified abnormal findings of blood chemistry Plan: Patient was encouraged to complete his blood work (3) Adult general medical exam: Code(s): Z00.00 - Encounter for general adult medical examination without abnormal findings Plan: Repeat in 1 year (4) Obesity (BMI 30.0-34.9): Code(s): E66.9 - Obesity, unspecified Plan: Healthy food choices and exercise as tolerated Coding Level of Care Code Est Pt Prev Care 18-39y(13394) Diagnoses Lumbar radiculopathy M54.16 Low vitamin D level R79.89 Adult general medical exam Z00.00 Obesity (BMI 30.0-34.9) E66.9
== END 2023-06-25 09:50 | disposition home or self-care (01) ==
PROVIDERS: PCP Nurse Practitioner Family; Visit Provider Nurse Practitioner Family
DX: Z00.00 Encounter for general adult medical examination without abnormal findings (principal); M54.16 Radiculopathy, lumbar region; E66.9 Obesity, unspecified; Z68.31 Body mass index [BMI] 31.0-31.9, adult; R79.89 Other specified abnormal findings of blood chemistry
CPT/HCPCS: 99395

== ENCOUNTER 2023-06-30 09:27 | Outpatient (REF) | payer OTHER, SELFPAY ==
[2023-06-30 11:19] LABS: Vitamin D 25-OH Total 104.4 ng/mL (>30)
== END 2023-06-30 09:28 | disposition home or self-care (01) ==
LOC: HO.LAB 09:27
PROVIDERS: PCP Nurse Practitioner Family; Visit Provider Nurse Practitioner Family
DX: E55.9 Vitamin D deficiency, unspecified (principal)
CPT/HCPCS: 36415; 82306

== ENCOUNTER 2023-09-04 09:23 | Day surgery (SDC) | payer OTHER, SELFPAY ==
[2023-08-20 09:12] VITALS: BMI 30.7
--- NOTE | 2023-09-03 11:47 | P.CONAN_ITS ---
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 Father No problems noted. Family history of problems with anesthesia: No Surgical History Surgical History History of selective injection of anesthetic agent around lumbar nerve root [place] teeth extracted Hx of tonsillectomy H/O splenectomy History of Problems with Anesthesia: No Social History Social History Housing: House Are you a primary career services director to a significant other at home: No Do you presently have visiting nurse or other home services: No Alcohol intake: never Patient Tobacco Use Status: Never used Tobacco e-Cigarette/Vaping Use: Never Used Second Hand Smoke Exposure: No service: Yes Current occupational status: employed Cognitive needs: No Hearing needs: No Vision needs: No Meds Allergies Allergy/AdvReac Type Severity Reaction Status Date / Time No Known Allergies Allergy Verified 06/25/23 09:40 Home Medications Medication Instructions Recorded Confirmed Last Taken Type ibuprofen 200 mg tablet (Advil) 400 mg PO BID 08/20/23 08/20/23 Unknown History Exam Height,Weight and Vital Signs: Height 5 ft 11 in Weight 99.79 kg Pertinent Lab Results Pertinent Lab Results: Laboratory Tests 03/19/23 09:34 WBC 8.7 Hgb 13.8 L Hct 42.9 Plt Count 430 H Sodium 139 Potassium 4.1 Chloride 108 Carbon Dioxide 24 BUN 21 H Creatinine 0.94 Assessment and Plan Assessment Anesthesia Assessment: Chart Reviewed Final Anesthetic Review Family History of Problems with Anesthesia: No History of Problems with Anesthesia: No
[2023-09-04] VITALS (9 sets, daily range): BP systolic 112–131; BP diastolic 69–84; PULSE 72–93; RESP 16; TEMP 36.4–36.9; O2SAT 95–97; BMI 31.0
--- NOTE | ~2023-09-04 | FL_ITS ---
CLINICAL INDICATION: Back pain. FINDINGS: Technical assistance and equipment were provided by the Department of Radiology during intraoperative fluoroscopy for L5-S1 microlumbar discectomy. 2, limited fluoroscopic spot images are submitted. A radiologist was not present during the procedure. Images demonstrate retractors and probe to project over the posterior elements at L5-S1. The images are available for review on PACS. TOTAL FLUOROSCOPY TIME: 0 minutes. DOSE AREA PRODUCT: 0.04 Gy-cm2 (vidal-centimeter squared) FL/FL guidance in OR IMPRESSION: Technical assistance and equipment provided by the Department of Radiology during intraoperative fluoroscopy, as above. Please see operative report for further details.
--- NOTE | 2023-09-04 07:36 | MHC.SHP ---
Pre-Procedural Eval Section A - 24 Hr Update-Section A only Date of Service: 09/04/23 The patient is an INPATIENT: No Changes since office visit: No Cold of Flu in the past 2 weeks, No New Medical Problems, No Changes in Medication and No Patient answered all questions The patient has been examined within 24 hours of the surgical procedure. The History & Physical has been completed within 30 days and I have reviewed it.: No Section B - Complete if H&P > 30 days Chief Complaint: Radiculopathy, lumbar region Allergies: Allergies Allergy/AdvReac Type Severity Reaction Status Date / Time No Known Allergies Allergy Verified 06/25/23 09:40 Review of Systems Sugical H&P ROS: Negative: Constitution, Cardiovascular, Respiratory, Neurological, Psychiatric, Hem-Onc, Allergic/Immunologic, Gastrointestinal, Genitourinary, Musculoskeletal, Integumentary, Endocrine and Eyes/Ears/Nose/Throat Exam Surgical H&P Exam: Not Evaluated: HEENT, Not Evaluated: Heart, Not Evaluated: Lungs, Not Evaluated: Extremities, Not Evaluated: Abdomen, Not Evaluated: Skin and Not Evaluated: Neurological Plan Diagnosis/Plan: Unchanged right L5-S1 microdiskectomy Time Spent With Patient Time: Total time managing care of this patient today __r5__ minutes.
[2023-09-04] MEDS: methocarbamoL 750 MG TABLET PO (10:27)
[2023-09-04] MEDS: Gabapentin 300 MG CAPSULE PO (10:27)
[2023-09-04] MEDS: Lactated Ringers 1,000 ML 100 ML IVCONT (10:27)
--- NOTE | 2023-09-04 10:51 | HO.ANESPROP2 ---
ON LICENSE OF [facility] Active Problems Active Problems: All Active Problems (Updated 08/20/23 @ 08:48 by Bia Inman RN) Obesity (BMI 30.0-34.9) (Acute) Adult general medical exam (Acute) Lumbar spondylosis (Acute) Lumbar radiculopathy (Acute) Low vitamin D level (Acute) Right sided sciatica (Acute) Past Medical History Medical History Back pain Lumbar spondylosis Family History Family History Mother No problems noted. Father No problems noted. Family history of problems with anesthesia: No Surgical History Surgical History History of selective injection of anesthetic agent around lumbar nerve root [place] teeth extracted Hx of tonsillectomy H/O splenectomy History of Problems with Anesthesia: No Social History Social History Housing: House Are you a primary vision care associate to a significant other at home: No Do you presently have visiting nurse or other home services: No Alcohol intake: never Patient Tobacco Use Status: Never used Tobacco e-Cigarette/Vaping Use: Never Used Second Hand Smoke Exposure: No Use of substances other than those prescribed or required for medical reasons: No Have you been hit, kicked, punched, or otherwise hurt by someone within the past year? If so, by whom?: No Are you DNR?: No Advance Directives: No Advance Directives Information Provided: Yes Advance Directives on File: No Recently lost weight without trying: No Eating poorly because of decreased appetite: No Nutrition Risks: No Nutritional Risk Poor oral hygiene: No service: Yes Current occupational status: employed Cognitive needs: No Hearing needs: No Vision needs: No Meds Allergies Allergy/AdvReac Type Severity Reaction Status Date / Time No Known Allergies Allergy Verified 06/25/23 09:40 Active Medications: Current Medications Lactated Ringer's (Lr) 1,000 mls @ 100 mls/hr IVCONT .Q10H DOROTHY Last Admin: 09/04/23 10:27 Dose: 100 mls/hr Home Medications Medication Instructions Recorded Confirmed Last Taken Type ibuprofen 200 mg tablet (Advil) 400 mg PO BID 08/20/23 08/20/23 Unknown History Exam Height,Weight and Vital Signs: Height 5 ft 11 in Weight 100.698 kg Last Vital Signs Temp 98.5 F 09/04/23 10:28 Pulse 76 09/04/23 10:28 Resp 16 09/04/23 10:28 BP 131/84 09/04/23 10:28 Pulse Ox 96 09/04/23 10:28 O2 Del Method Room Air 09/04/23 10:28 Airway Mallampati Class: I TM Dist: >3cm Neck ROM: Full Heart: RRR Lungs: CTA Assessment and Plan Assessment Anesthesia Assessment: Anesthesia Plan Discussed Final Anesthetic Review Family History of Problems with Anesthesia: No History of Problems with Anesthesia: No NPO: Yes ASA Class: II Final Preanesthetic Review: Meds/Allgs Chart Reviewed, Consent Obtained/Reviewed and Anes Risks/Benef Reviewed Patient Risk: Low Procedure Risk: Intermediate Anesthetic Plan Anesthetic Plan: GA Disposition: Standard PACU
--- NOTE | 2023-09-04 12:33 | P.OP_ITS ---
Operative Note Operative Note Date of Service: 09/04/23 Narrative: Preoperative diagnosis: Right S1 radiculopathy due to disc herniation Postoperative diagnosis: Same Procedure: L5-S1 lumbar microdiskectomy with microscope Surgeon: Herman Romero MD, PhD Mixer Diamond Powder: Tomas Stanford This patient is suffering from a right S1 radiculopathy. An MRI shows a small disc herniation compressing the right S1 nerve root. The patient was offered a L5-S1 microdiskectomy to decompress the nerve root. The procedure complications were explained. The patient was consented. The patient was brought to the operating room and endotracheally intubated. The patient was turned in a prone position on the Reza frame. Prepping and draping was done followed by time-out. A mid lumbar incision was made followed by release of the paravertebral muscles on the right side to expose the L5-S1 interspace. An intraoperative x-rays obtained to confirm the correct level. The microscope was brought in. A L5 laminotomy was done followed by opening of the flavum ligament. The S1 nerve root was identified and retracted medially to expose the L5-S1 disc space. I could palpate a disc herniation medial from the S1 nerve root. An annulotomy was done after which I was able to retrieve a fragment medial from the S1 nerve root. The disc space was inspected and any residual disc fragments were removed. This resulted in an excellent decompression of the S1 nerve root. Hemostasis was done. The microscope was removed. Marcaine was injected intramuscularly.The incision was closed in two layers. Steri-Strips used to approximate seizure. An op-site were taken there was used to cover the incision. All sponge and needle counts were correct. Patient was extubated and transported in stable condition to recovery room. this procedure was done with the aid of a physician junior assistant manager who performed the initial exposure until the microscope was brought in and performed the closure of the incision. Anesthesia: General Blood loss: 10 mL Complications: None Specimen: None Surgical time: Disposition: Discharge home
--- NOTE | 2023-09-04 12:42 | P.DS_ITS ---
DS: Providers Provider Date of Service: 09/04/23 Primary care physician: KAYLA Mathew DS: Summary Time Attestation Discharge coordination time: Less than 30 minutes Quality: Safe Use of Opioids Does Pt have an Active Cancer Diagnosis on the Problem List?: No Quality: Stroke Does the patient have a stroke diagnosis?: No Physical Exam Vital Signs: Vital Signs: Last Vital Signs Temp 98.5 F 09/04/23 10:28 Pulse 76 09/04/23 10:28 Resp 16 09/04/23 10:28 BP 131/84 09/04/23 10:28 Pulse Ox 96 09/04/23 10:28 O2 Del Method Room Air 09/04/23 10:28 BMI result Body Mass Index 31.0 Discharge Plan Discharge Patient Disposition: Home, Self-Care Referrals: Christa Zuniga FNP [Primary Care Provider] - 1 Week Discharge Medications: New oxycodone 5 mg tablet 5 mg PO Q6-8H PRN (Reason: severe pain (scale score 7-10)) Qty: 30 0RF Rx Instructions: Partial Fill upon patient request. docusate sodium 100 mg capsule 100 mg PO BID Qty: 14 0RF No Action ibuprofen [Advil] 200 mg Tablet 400 mg PO BID Discharge Orders: Discharge Order (Routine); Ordered 09/04/23 Ordered By: Tank Priest Diet: Advance to usual diet Activity on Discharge: As tolerated Activity Restrictions/Additional Instructions: After your spinal surgery we ask you to observe the following restr ictions/guidelines: Activity: It is normal to feel some discomfort as you increase your activity, but that will improve with time. We ask you avoid heavy lifting or acitivities that cause pain. As a general rule, 8lbs is a safe limit for lifting right after surgery. Walk as much as you feel comfortable but not to exhaustion. You will feel extra tired the first few days after surgery. Stay well hydrated. It is OK to walk up and down stairs You may return to driving when you are off narcotics (such as vicodin, oxycodone, dilaudid, etc), and you are back to normal functional capacity. If you have any concerns please check with office before driving. Return to work is specific to each patient and each surgery, so please speak with your doctor/PA at first follow up. Please bring paperwork such as FMLA at that time if you need it filled out. Medications: We will give you a short supply of narcotics after surgery (usually one weeks worth). If you need more please call the office but do not use more than prescribed. You will need to give our office 48 hours notice if you need narcotics refilled and we do not fill narcotics on weekends or evenings. If you are on a narcotic, it is a good idea to take a stool softener such as colace or senna to avoid constipation If you take blood thinner such as aspirin, Plavix, Coumadin, Effient, Eliquis etc for conditions such as Afib, DVT, Pulmonary embolus, coronary disease, stents etc please speak with your surgeon about specific details as to when you can resume these medications. You can resume NSAIDs on post op day 1 (eg: Motrin, Naproxen, etc). Follow up: Please call the office, , after surgery to arrange a 3 week follow up for wound check. Wound Care: You may remove your dressing on the first day after surgery. ?You may ?leave open to air. Please do not remove the steri strips underneath. they will fall off on their own in one week. IT IS NORMAL FOR THE WOUND TO OOZE OR BE BLOODY FOR A FEW DAYS AFTER SURGERY. ?IF THIS HAPPENS JUST PLACE NEW DRESSING OVER IT TO AVOID STAINING CLOTHES. You may shower on post op day # 1 We ask that you do not let the water soak the wound. If it does get wet, just towel dry lightly. Please do not scrub your incision or place any type of chemical/ointment on the wound. No tub baths, pools or jacuzzis for one month. If you have any leaking or redness from your wound, or fevers, please call the office.
== END 2023-09-04 14:40 | disposition home or self-care (01) ==
PROVIDERS: PCP Nurse Practitioner Family; Visit Provider Neurological Surgery
PROC: (CPT 63030; principal; 2023-09-04 12:50)
DX: M54.16 Radiculopathy, lumbar region (principal)
CPT/HCPCS: 63030; J0131; J0690; J1100; J1596; J1885; J2250; J2405; J2704; J3010

== ENCOUNTER → 2023-09-04 09:23 | Outpatient (BNV) | payer OTHER, SELFPAY | PROVIDERS: PCP Nurse Practitioner Family; Visit Provider Neurological Surgery | DX: M54.16 Radiculopathy, lumbar region (principal) | CPT/HCPCS: 63030; 99499 ==

== ENCOUNTER 2023-09-25 09:46 | Outpatient (AMB) | payer OTHER, SELFPAY ==
--- NOTE | 2023-09-25 09:52 | HO.SPINEOV ---
Intake Intake Visit Reasons: 1st post op Intake Note: Mr. Diaz is here today for 1st post op Clutch Specialist Required: No Allergies No Known Allergies Allergy (Verified 06/25/23 09:40) Assessment & Plan Assessment & Plan (1) Lumbar radiculopathy: Code(s): M54.16 - Radiculopathy, lumbar region Plan Procedure: L5-S1 lumbar microdiskectomy Bronson comes in today for his 1st postoperative visit. He reports he is up, walking around, and completing the majority of his ADLs at home. Unfortunately he reports that he continues to suffer from his low back pain with radiculopathy to his right lower extremity. He again describes this radiation in an S1 dermatomal distribution on the right. He describes the character of this pain as ?burning.? We discussed the possibility of postoperative inflammation impinging on the recently decompressed surgical site. He states that he is able to take ibuprofen with good relief for a couple of hours and then his pain returns. He is having difficulty sleeping at night and reports awakening multiple times per night. I encouraged him that the symptoms should subside as his inflammation reduces. No neurological deficits. Sensation grossly intact. Patient is able to ambulate well, rises from a seated position without difficulty. Incision sites are closed, well healing, with no signs of drainage. We will follow-up with the patient in 6 weeks for his 2nd postoperative visit. He was encouraged to call the office sooner if he feels as though his pain does not begin to subside and a couple of weeks. I will be prescribing him a dose of gabapentin to take before bed in order to aid his sleep. Tank Romero MD,PhD [facility] Medications: New gabapentin 400 mg PO BEDTIME 30 caps 0RF Nerve pain Coding Level of Care Code Global (71315) Diagnoses Lumbar radiculopathy M54.16
== END 2023-09-25 10:03 | disposition home or self-care (01) ==
PROVIDERS: PCP Nurse Practitioner Family; Visit Provider Physician Assistant
DX: M54.16 Radiculopathy, lumbar region (principal)
CPT/HCPCS: 99024

== ENCOUNTER → 2023-09-25 09:46 | Outpatient (BNVA) | payer OTHER, SELFPAY | PROVIDERS: PCP Nurse Practitioner Family; Visit Provider Physician Assistant | DX: M54.16 Radiculopathy, lumbar region (principal) | CPT/HCPCS: 99212 ==

== ENCOUNTER 2023-11-06 09:51 | Outpatient (AMB) | payer OTHER, SELFPAY ==
--- NOTE | 2023-11-06 09:59 | A.SPINEOV_ITS ---
Intake Intake Visit Reasons: 2nd post op Intake Note: Mr. Rivers is here today for 2nd post-op Consumer Affairs Director Required: No Allergies No Known Allergies Allergy (Verified 11/06/23 09:59) Assessment & Plan Assessment & Plan (1) S/P spinal surgery: Code(s): Z98.890 - Other specified postprocedural states Plan Procedure: L5-S1 lumbar microdiskectomy Bronson comes in today for his 1st postoperative visit. He reports he is satisfied with the surgery and does feel much better than he did preoperatively. Unfortunately he continues to have waxing/waning radicular pains down his left lower extremity, but reports that they are very mild in nature and are not anywhere near as severe as they were prior to surgery. In addition to this, he states that he has been going on walks daily, and has been hiking on the weekends. He feels he is much more mobile and active than he was prior to surgery. No new neurological deficits. Patient is able to ambulate well, rises from a seated position without difficulty. Incision sites are closed, well healing, with no signs of drainage. There is no need for continued routine follow-up for Bronson, he may be discharged as a patient. Tank Romero MD,PhD [facility] Coding Level of Care Code Global (55732) Diagnoses S/P spinal surgery Z98.890
== END 2023-11-06 10:04 | disposition home or self-care (01) ==
PROVIDERS: PCP Nurse Practitioner Family; Visit Provider Physician Assistant
DX: Z98.890 Other specified postprocedural states (principal)
CPT/HCPCS: 99024

== ENCOUNTER → 2023-11-06 09:51 | Outpatient (BNVA) | payer OTHER, SELFPAY | PROVIDERS: PCP Nurse Practitioner Family; Visit Provider Physician Assistant | DX: Z48.89 Encounter for other specified surgical aftercare (principal); Z98.890 Other specified postprocedural states | CPT/HCPCS: 99212 ==

== ENCOUNTER 2024-06-29 08:46 | Outpatient (AMB) | payer OTHER, SELFPAY ==
[2024-06-29 09:02] VITALS: BP 122/80; PULSE 83; O2SAT 98; BMI 28.2
--- NOTE | 2024-06-29 09:02 | A.OFFPC_ITS ---
Vital Signs 06/29/24 09:02 Height 5 ft 11 in Weight 202 lb 8 oz BMI 28.2 BP 122/80 Blood Pressure Location Lt brachial Position Sitting Pulse 83 Pulse Source Pulse Oximeter Pulse Oximetry (%) 98 Oxygen Delivery Method Room Air Intake Visit Reasons: Annual exam Allergies No Known Allergies Allergy (Verified 06/29/24 09:26) Medication List - Last Reconciled 06/29/24 by Willem Berrios PA-C Tobacco use date assessed: 06/29/24 Dental Screening Dental Screen Date: 06/29/24 Did you have a dental visit in the last 12 months?: Yes Did you have a dental problem in the last 6 months where you did not have access to dental care?: No Was dental information given to patient?: Patient has dentist HPI Annual exam HPI Details Patient is a 39-year-old male here today for annual physical. This is the 1st time I am meeting this 39-year-old male with a past medical history of lumbar disc disease status post spinal surgery in early 2023. Did quite well after surgery and now going to the gym quite regularly to lose weight. Otherwise no significant complaints today besides left wrist tendinitis from going to the gym. Vaccines: UTD with FLu vaccine - has vaccine records he will bring [facility] Medical History Back pain Lumbar spondylosis Surgical History History of selective injection of anesthetic agent around lumbar nerve root [place] teeth extracted Hx of tonsillectomy H/O splenectomy Family History (Updated 06/29/24 @ 09:29 by Willem Berrios PA-C) Mother Skin cancer Father No problems noted. 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 1. Little interest or pleasure in doing things: not at all 2. Feeling down, depressed, or hopeless: not at all 3. Trouble falling or staying asleep, or sleeping too much: not at all 4. Feeling tired or having little energy: not at all 5. Poor appetite or overeating: not at all 6. Feeling bad about yourself - or that you are a failure or have let yourself or your family down: not at all 7. Trouble concentrating on things, such as reading the newspaper or watching television: not at all 8. Moving or speaking so slowly that other people could have noticed. Or the opposite - being so fidgety or restless that you have been moving around a lot more than usual: not at all 9. Thoughts that you would be better off or of hurting yourself in some way: not at all Total score: 0 Depression Screening Interpretation: Negative Depression Screening Done: Yes 46573 - PHQ-9 Billing: Yes Source: Developed by Drs. Aleksandar Zamora, Kelsey Hamlin, Gian Schneider and colleagues, with an educational gardenia from [employer]. Thrive Questionnaire Date Thrive assessed: 06/29/24 I am a: Patient What is your living situation today?: I have a steady place to live Within the past 12 months, did the food you bought not last and you didn't have the money to get more?: Never true Within the past 12 months, did you worry whether your food would run out before you got money to buy more?: Never true Do you have trouble paying for medicines?: No Do you have trouble getting transportation to medical appointments?: No Do you have trouble paying your heating and electricity bill?: No Do you have trouble taking care of your child, family member or friend?: No Do you have trouble with day-to-day activities such as bathing, preparing meals, shopping, managing finances, etc.?: No Are you currently unemployed and looking for a job?: No Are you interested in more education?: No Please select the resources that you would like help with: None Currently or been in a relationship where the following occur: No concerns reported THRIVE Score: 0 AUDIT C Alcohol Use Questionnaire (AUDIT-C) 1. How often do you have a drink containing alcohol?: Monthly or less 2. How many drinks containing alcohol do you have on a typical day when you are drinking?: 1 or 2 3. How often do you have six or more drinks on one occasion?: Never Total Score: 1 RASHI-7 AMB Questionnaire RASHI-7 Date RASHI - 7 assessed: 06/29/24 Feeling nervous, anxious, or on edge: 0 = Not at all Not being able to stop or control worryin = Not at all Worrying too much about different things: 0 = Not at all Trouble relaxin = Not at all Being so restless that it is hard to sit still: 0 = Not at all Becoming easily annoyed or irritable: 0 = Not at all Feeling afraid as if something awful might happen: 0 = Not at all Total RASHI-7 score (0-4 normal; 5-9 mild; 10-14 moderate; 15-21 severe): 0 Source: Developed by Drs. Aleksandar Zamora, Kelsey Hamlin, Gian Schneider and colleagues, with an educational gardenia from [employer]. RASHI-7 Assessment Billing RASHI-7 Assessment Tool: RASHI-7 Assessment 32820 Review of Systems Const Denies body aches, Denies chills, Denies excessive sweating, Denies fatigue, Denies fever(s) and Denies headache(s) Eyes Denies blurry vision ENT Denies dysphagia, Denies vertigo, Denies dizziness, Denies headache(s), Denies hearing loss and Denies tinnitus Card Denies chest pain, Denies chest pain with activity, Denies syncope, Denies irregular heart rhythm and Denies dyspnea Resp Denies chest congestion, Denies cough, Denies hemoptysis, Denies dyspnea and Denies wheezing GI Denies abdominal pain, Denies melena, Denies hematochezia, Denies coffee ground emesis, Denies dysphagia, Denies diarrhea, Denies nausea and Denies vomiting Denies difficulty urinating, Denies dysuria, Denies urinary frequency, Denies urinary hesitancy and Denies urinary urgency Musc Denies arthralgias, Denies limited range of motion, Denies muscle cramps and Denies muscle weakness Skin/Breast Denies rash and Denies skin ulcer Neuro Denies Abnormal speech present, Denies confusion, Denies vertigo, Denies dizziness, Denies syncope, Denies headache(s), Denies memory loss and Denies seizure-like activity Psych Denies anxiety, Denies confusion, Denies depression, Denies memory loss, Denies panic attacks and Denies paranoia Endo Denies excessive sweating, Denies fatigue, Denies flushing, Denies polydipsia and Denies polyuria Aller/Immun Denies wheezing Physical exam (Primary Care) Vital Signs: Last Vital Signs Pulse 83 06/29/24 09:02 BP 122/80 06/29/24 09:02 Pulse Ox 98 06/29/24 09:02 Oxygen Delivery Method Room Air 06/29/24 09:02 BMI result Body Mass Index 28.2 Tobacco/Smoking Status: Tobacco use Status Tobacco use date assessed 06/29/24 06/29/24 09:05 Patient Tobacco Use Status Never used Tobacco 06/29/24 09:05 e-Cigarette/Vaping Use Never Used 06/29/24 09:05 PHQ-9: PHQ-9 Score PHQ-9: Total score 0 06/29/24 09:05 Depression Screening Interpretation: Negative Thrive Assessment: Date of Thrive Assessment Date Thrive assessed 06/29/24 06/29/24 09:05 Currently or been in a relationship where the following occur: No concerns reported Const General: cooperative, comfortable, no acute distress, alert and awake; No confusion Orientation/consciousness: oriented to person, oriented to place, patient oriented x3 and No confusion HENMT Head: Yes normocephalic Ears: external ears normal and TM's normal bilaterally Face and sinus: No sinus tenderness Mouth: Normal oral and palatal mucosa present and tongue normal Teeth and gingiva: dentition normal and gingiva normal Throat: Yes posterior oropharynx normal, Yes tonsils normal and Yes uvula midline Eyes Conjunctivae: conjunctivae normal Sclerae: sclerae normal Pupils: Equal, round and reactive pupils present EOM: EOMs intact bilaterally Direct Ophthalmoscopy: No no photophobia Neck Neck: Yes no lymphadenopathy, No tender and Yes no JVD Thyroid: Thyroid normal Carotids: no bruits Chest Chest palpation & inspection: no tenderness Resp Effort & Inspection: normal respiratory effort, no audible wheezes, not labored and no stridor Auscultation: no crackles, no rales, no rhonchi and no wheezes Cardio Jugular venous distension: no JVD Rate: regular rate, not bradycardic and not tachycardic Rhythm: regular rhythm Bruits: no carotid bruits Peripheral pulses: Peripheral pulses 2+ throughout GI Inspection: Yes normal to inspection, No abdominal wall ecchymosis and No visible herniation Palpation (GI): Soft to palpation, nontender, no guarding, not rigid and No hepatosplenomegaly present Auscultation: normoactive bowel sounds General: Yes no CVA tenderness Back/Spine/Pelvis Back: no CVA tenderness and No back tenderness Cervical Spine: cervical ROM normal Thoracic/Lumbar Spine: thoracic and lumbar spine normal to inspection, straight leg raise negative bilaterally, No thoraco-lumbar ROM limited and No lumbar spinal tenderness Skin Lesions: no lesions Rashes: no rashes Wounds: no wounds Neuro General: oriented to person, oriented to place, patient oriented x3, CN's II-XI intact bilaterally and No confusion Cranial nerves: Yes Equal, round and reactive pupils present and Yes Normal accommodation reflex present Cognition (Neuro): normal cognition Speech: No Abnormal speech present Gait exam (Neuro): Normal gait present Motor exam (neuro): 5/5 motor strength present throughout Extrem Right upper extremity: full ROM; no cyanosis Left upper extremity: full ROM; no cyanosis Right lower extremity: no edema Left lower extremity: no edema Psych Appearance: grossly normal Mental Status: mental status grossly normal Affect: normal affect Attitude: cooperative Thought process: Normal thought process present Coding Level of Care Code Est Pt Prev Care 40-64y(04864) Diagnoses Adult general medical exam Z00.00 Lumbar radiculopathy M54.16 Screening for diabetes mellitus (DM) Z13.1 Additional Codes PHQ-9 - 08707 - PHQ-9 Billing: Yes ([id number]) RASHI-7 Assessment Billing - RASHI-7 Assessment Tool: RASHI-7 Assessment 32381 ([id number]) Assessment & Plan Assessment & Plan (1) Adult general medical exam: Code(s): Z00.00 - Encounter for general adult medical examination without abnormal findings Category: Medical Plan: As per HPI (2) Lumbar radiculopathy: Code(s): M54.16 - Radiculopathy, lumbar region Category: Medical Plan: Did have back surgery in early 2023. Did quite well after surgery Has been back at the gym trying to stay strong and lose weight. (3) Screening for diabetes mellitus (DM): Code(s): Z13.1 - Encounter for screening for diabetes mellitus Category: Medical Plan: As per HPI Orders: Orders Comprehensive [place]. Panel Fast Today Z13.1 - Encounter for screening for diabetes mellitus Vitamin D 25-OH Total Today R79.89 - Other specified abnormal findings of blood chemistry Complete Blood Count no Diff Today Z13.1 - Encounter for screening for diabetes mellitus
== END 2024-06-29 09:38 | disposition home or self-care (01) ==
PROVIDERS: PCP Nurse Practitioner Family; Visit Provider Physician Assistant
DX: Z00.00 Encounter for general adult medical examination without abnormal findings (principal); M54.16 Radiculopathy, lumbar region; Z13.1 Encounter for screening for diabetes mellitus

== ENCOUNTER → 2024-06-29 08:46 | Outpatient (BNVA) | payer OTHER, SELFPAY | PROVIDERS: PCP Nurse Practitioner Family; Visit Provider Physician Assistant | DX: Z00.00 Encounter for general adult medical examination without abnormal findings (principal); M54.16 Radiculopathy, lumbar region | CPT/HCPCS: 96127 ==

== ENCOUNTER 2024-06-30 08:15 | Outpatient (REF) | payer OTHER, SELFPAY ==
[2024-06-30 09:09] LABS: Hematocrit 43.2 % (42.0-52.0); Hemoglobin 14.2 g/dl (14.0-18.0); Mean Corpuscular HGB Conc 32.9 g/dl (31.0-36.0); Mean Corpuscular Hemoglobin 29.5 pg (27.0-33.0); Mean Corpuscular Volume 89.6 fL (80.0-98.0); Platelet Count 430 X10*3/uL (160-400); Red Blood Count 4.82 X10*6/uL (4.60-5.80); Red Cell Distribution Width 12.6 % (11.0-16.0); White Blood Count 10.2 X10*3/uL (4.8-10.8)
[2024-06-30 09:46] LABS: Alanine Aminotransferase 26 U/L (0-40); Albumin Level 4.6 g/dL (3.5-5.0); Alkaline Phosphatase 60 U/L (39-117); Anion Gap 12 (12-20); Aspartate Amino Transferase 32 U/L (5-37); Bilirubin Total 0.7 mg/dL (0.0-1.0); Blood Urea Nitrogen 22 mg/dL (9-16); Calcium 9.9 mg/dL (8.4-10.2); Carbon Dioxide 28 mmol/L (22-29); Chloride 104 mmol/L (96-108); Estimated Glomerular Filt Rate > 60; Glucose Fasting 87 mg/dL (60-99); Potassium 4.5 mmol/L (3.3-5.1); Sodium 139 mmol/L (135-145); Total Protein 8.1 g/dL (6.5-8.0)
[2024-06-30 09:57] LABS: Vitamin D 25-OH Total 35.6 ng/mL (>30)
== END 2024-06-30 08:16 | disposition home or self-care (01) ==
LOC: HO.LAB 08:15
PROVIDERS: Visit Provider Physician Assistant
DX: Z13.1 Encounter for screening for diabetes mellitus (principal); R79.89 Other specified abnormal findings of blood chemistry
CPT/HCPCS: 36415; 80053; 82306; 85027

== ENCOUNTER 2025-06-15 15:32 | Outpatient (AMB) | payer OTHER, SELFPAY ==
--- NOTE | 2025-06-15 16:03 | A.OFFPC_ITS ---
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 Required: No Senior Infrastructure Architect: Not Required per policy Accompanied by: Self / Same As Patient Allergies No Known Allergies Allergy (Verified 06/15/25 16:10) Medication List - Last Reconciled 06/15/25 by Willem Berrios PA-C No Known Home Meds Tobacco use date assessed: 06/15/25 Dental Screening Dental Screen Date: 06/15/25 Did you have a dental visit in the last 12 months?: Yes Did you have a dental problem in the last 6 months where you did not have access to dental care?: No Was dental information given to patient?: Patient has dentist HPI Pain on wrist HPI Details The patient is a 40-year-old male presenting for evaluation of left wrist pain. The pain began approximately one year ago after performing dips at the gym and has persisted since. He denies any specific inciting fall or injury. The patient reports the pain was significantly worse about two months ago, at which time he was unable to carry a water bottle in his left hand. Currently, his symptoms are primarily elicited by activities that involve pushing off the wrist, such as opening a door or doing push-ups. He has tried taking a month off from the gym and uses wraps when working out, but reports these measures have been of little help. Separately, the patient is concerned about a skin lesion on his face which has been present for a couple of months and has not resolved like a typical pimple. [facility] Medical History Back pain Lumbar spondylosis Surgical History History of selective injection of anesthetic agent around lumbar nerve root [place] teeth extracted Hx of tonsillectomy H/O splenectomy Family History Mother Skin cancer Father No problems noted. 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 1. Little interest or pleasure in doing things: not at all 2. Feeling down, depressed, or hopeless: not at all 3. Trouble falling or staying asleep, or sleeping too much: not at all 4. Feeling tired or having little energy: not at all 5. Poor appetite or overeating: not at all 6. Feeling bad about yourself - or that you are a failure or have let yourself or your family down: not at all 7. Trouble concentrating on things, such as reading the newspaper or watching television: not at all 8. Moving or speaking so slowly that other people could have noticed. Or the opposite - being so fidgety or restless that you have been moving around a lot more than usual: not at all 9. Thoughts that you would be better off or of hurting yourself in some way: not at all Total score: 0 Source: Developed by Drs. Aleksandar Zamora, Kelsey Hamlin, Gian Schneider and colleagues, with an educational gardenia from [employer]. Thrive Questionnaire Date Thrive assessed: 06/08/25 I am a: Patient What is your living situation today?: I have a steady place to live Within the past 12 months, did the food you bought not last and you didn't have the money to get more?: Never true Within the past 12 months, did you worry whether your food would run out before you got money to buy more?: Never true Do you have trouble paying for medicines?: No Do you have trouble getting transportation to medical appointments?: No Do you have trouble paying your heating and electricity bill?: No Do you have trouble taking care of your child, family member or friend?: No Do you have trouble with day-to-day activities such as bathing, preparing meals, shopping, managing finances, etc.?: No Are you currently unemployed and looking for a job?: No Are you interested in more education?: No Please select the resources that you would like help with: None Currently or been in a relationship where the following occur: No concerns reported THRIVE Score: 0 AUDIT C Alcohol Use Questionnaire (AUDIT-C) 1. How often do you have a drink containing alcohol?: Monthly or less 2. How many drinks containing alcohol do you have on a typical day when you are drinking?: 1 or 2 3. How often do you have six or more drinks on one occasion?: Never Total Score: 1 RASHI-7 AMB Questionnaire RASHI-7 Date RASHI - 7 assessed: 06/29/24 Feeling nervous, anxious, or on edge: 0 = Not at all Not being able to stop or control worryin = Not at all Worrying too much about different things: 0 = Not at all Trouble relaxin = Not at all Being so restless that it is hard to sit still: 0 = Not at all Becoming easily annoyed or irritable: 0 = Not at all Feeling afraid as if something awful might happen: 0 = Not at all Total RASHI-7 score (0-4 normal; 5-9 mild; 10-14 moderate; 15-21 severe): 0 Source: Developed by Drs. Aleksandar Zamora, Kelsey Hamlin, Gian Schneider and colleagues, with an educational gardenia from [employer]. Review of Systems Const Denies headache(s) Eyes Denies loss of vision ENT Denies vertigo, Denies dizziness, Denies headache(s) and Denies sore throat Card Denies chest pain, Denies leg edema and Denies lightheadedness Resp Denies cough, Denies hemoptysis and Denies wheezing GI Denies abdominal pain, Denies melena, Denies constipation, Denies diarrhea and Denies vomiting Denies dysuria, Denies urinary frequency and Denies urinary urgency Musc Denies arthralgias, Denies joint swelling, Denies numbness and Denies tingling Neuro Denies Abnormal speech present, Denies behavioral changes, Denies vertigo, Denies dizziness, Denies headache(s), Denies loss of vision, Denies memory loss, Denies numbness and Denies tingling Psych Denies anxiety, Denies behavioral changes, Denies depression, Denies memory loss and Denies panic attacks Miah/Lymph Denies easy bleeding and Denies easy bruising Aller/Immun Denies wheezing Physical exam (Primary Care) Vital Signs: Last Vital Signs Temp 97.3 F 06/15/25 16:04 Pulse 84 06/15/25 16:04 BP 96/60 06/15/25 16:04 Pulse Ox 94 06/15/25 16:04 Oxygen Delivery Method Room Air 06/15/25 16:04 BMI result Body Mass Index 31.8 Tobacco/Smoking Status: Tobacco use Status Tobacco use date assessed 06/15/25 06/15/25 16:09 Patient Tobacco Use Status Never used Tobacco 06/15/25 16:09 e-Cigarette/Vaping Use Never Used 06/15/25 16:09 PHQ-9: PHQ-9 Score PHQ-9: Total score 0 06/15/25 16:19 Thrive Assessment: Date of Thrive Assessment Date Thrive assessed 06/08/25 06/15/25 16:09 Currently or been in a relationship where the following occur: No concerns reported Const General: healthy appearing, no acute distress, alert and awake Nutritional Appearance: well nourished Orientation/consciousness: oriented to person, oriented to place and oriented to time HENMT Ears: TM's normal bilaterally General nose exam: Normal nasal mucous membranes and turbinates present Eyes Conjunctivae: conjunctivae normal Sclerae: sclerae normal Pupils: Equal, round and reactive pupils present Neck Neck: Yes no lymphadenopathy and Yes no JVD Thyroid: Thyroid normal Carotids: no bruits Resp Effort & Inspection: normal respiratory effort and not tachypneic Auscultation: no crackles, no rales, no rhonchi and no wheezes Cardio Rate: regular rate Rhythm: regular rhythm Heart sounds: no murmurs and normal S1 and S2 GI Palpation (GI): Soft to palpation, nontender, no hepatomegaly and no splenomegaly Auscultation: normal bowel sounds Skin General skin exam: no rashes or lesions noted and dry skin Neuro General: oriented to person, oriented to place and oriented to time Cranial nerves: Yes Equal, round and reactive pupils present Speech: No Abnormal speech present Gait exam (Neuro): Normal gait present Motor exam (neuro): no tremor noted Extrem Right upper extremity: full ROM Left upper extremity: full ROM Right lower extremity: full ROM; no edema Left lower extremity: full ROM; no edema Psych Mental Status: mental status grossly normal Speech and movement: Normal speech and movement present Affect: normal affect Attitude: cooperative Thought process: Normal thought process present Coding Level of Care Code Est Pt Level 3 (69514) Diagnoses Left wrist tendonitis M77.8 Assessment & Plan Assessment & Plan (1) Left wrist tendonitis: Code(s): M77.8 - Other enthesopathies, not elsewhere classified Category: Medical Plan: For the patient's left wrist pain, which is most likely wrist tendinitis, an X- ray of the left wrist will be ordered to rule out a hairline fracture or other bony abnormalities, although it is not expected to show tendinitis. Further management options were discussed, including referral to occupational therapy or a hand wrist specialist for a possible cortisone injection if symptoms do not improve. Orders: Orders Comprehensive [place]. Panel Fast 06/15/25 Z13.1 - Encounter for screening for diabetes mellitus Complete Blood Count no Diff 06/15/25 Z13.1 - Encounter for screening for diabetes mellitus
[2025-06-15 16:04] VITALS: BP 96/60; PULSE 84; TEMP 36.3; O2SAT 94; BMI 31.8
== END 2025-06-15 16:19 | disposition home or self-care (01) ==
LOC: HO.HMCH 15:33
PROVIDERS: Visit Provider Physician Assistant
DX: M77.8 Other enthesopathies, not elsewhere classified (principal)

== ENCOUNTER → 2025-06-15 15:32 | Outpatient (BNVA) | payer OTHER, SELFPAY | PROVIDERS: Visit Provider Physician Assistant | DX: M77.8 Other enthesopathies, not elsewhere classified (principal) | CPT/HCPCS: 99212 ==

== ENCOUNTER 2025-06-16 13:15 | Outpatient (REF) | payer OTHER, SELFPAY ==
--- NOTE | ~2025-06-16 | XR_ITS ---
EXAMINATION: XR WRIST, LEFT CLINICAL INFORMATION: M77.8 - Other enthesopathies, not elsewhere classified COMPARISON: None available. TECHNIQUE: PA, lateral, and oblique views of the left wrist. Scaphoid projection FINDINGS: The carpal bones are intact with normal alignment. Distal radius and ulna are intact. The metacarpals are intact. No lytic or blastic lesions. No subcutaneous emphysema. No soft tissue calcifications. No metallic or radiopaque foreign body. XR/XR wrist LT min 3V IMPRESSION: Normal x-ray, left wrist. Electronically signed by: Mayco Kwok MD 06/16/2025 02:20 PM [facility]
== END 2025-06-16 13:16 | disposition home or self-care (01) ==
LOC: HO.XRAY 13:15
PROVIDERS: PCP Physician Assistant; Visit Provider Physician Assistant
DX: M77.8 Other enthesopathies, not elsewhere classified (principal)
CPT/HCPCS: 73110

== ENCOUNTER → 2025-06-16 13:19 | Outpatient (BNV) | payer OTHER, SELFPAY | PROVIDERS: PCP Physician Assistant; Visit Provider Radiology Diagnostic Radiology | DX: M77.8 Other enthesopathies, not elsewhere classified (principal) | CPT/HCPCS: 73110 ==

== ENCOUNTER 2025-06-30 08:43 | Outpatient (REF) | payer OTHER, SELFPAY ==
[2025-06-30 10:50] LABS: Hematocrit 44.2 % (42.0-52.0); Hemoglobin 14.3 g/dl (14.0-18.0); Mean Corpuscular HGB Conc 32.4 g/dl (31.0-36.0); Mean Corpuscular Hemoglobin 28.2 pg (27.0-33.0); Mean Corpuscular Volume 87.2 fL (80.0-98.0); NRBC Abs Auto 0.000 X10*3/uL (0.0-0.012); NRBC Pct Auto 0.0 /100WBC (0.0-0.2); Platelet Count 376 X10*3/uL (160-400); Red Blood Count 5.07 X10*6/uL (4.60-5.80); White Blood Count 8.0 X10*3/uL (4.8-10.8)
[2025-06-30 11:27] LABS: Alanine Aminotransferase 23 U/L (0-40); Albumin Level 4.6 g/dL (3.5-5.0); Alkaline Phosphatase 62 U/L (39-117); Anion Gap 10 (12-20); Aspartate Amino Transferase 25 U/L (5-37); Blood Urea Nitrogen 19 mg/dL (9-16); Calcium 8.9 mg/dL (8.4-10.2); Carbon Dioxide 29 mmol/L (22-29); Chloride 105 mmol/L (96-108); Estimated Glomerular Filt Rate > 60; Potassium 4.4 mmol/L (3.3-5.1); Sodium 140 mmol/L (135-145); Total Protein 7.4 g/dL (6.5-8.0)
== END 2025-06-30 08:44 | disposition home or self-care (01) ==
LOC: HO.LAB 08:43
PROVIDERS: PCP Physician Assistant; Visit Provider Physician Assistant
DX: Z00.00 Encounter for general adult medical examination without abnormal findings (principal); Z13.1 Encounter for screening for diabetes mellitus; M54.16 Radiculopathy, lumbar region
CPT/HCPCS: 36415; 80053; 85027

== ENCOUNTER 2025-06-30 08:43 | Outpatient (AMB) | payer OTHER, SELFPAY ==
--- NOTE | 2025-06-30 08:52 | MHC.PC.OV ---
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 Patient previously had issue with his left wrist which was assumed to be tendinitis which has gotten better. Lumbar disc disease: He reports that his back pain has returned to the state it was in before his surgery approximately two years ago, which was performed in August [address] Romero. The symptoms began acutely on morning when he woke up and was unable to get out of bed, without any specific inciting injury, although he does go to the gym regularly. He describes a sharp, constant pain radiating down his entire right leg to his foot. He notes the pain is not as severe as it was right before his prior surgery. He denies leg weakness and any issues with urination or defecation. For pain, he has taken Tylenol two days ago. He recalls that a steroid taper prior to his surgery provided some relief. --> Previous MRI lumbar spine done in 2022 showing multi level degenerative disc disease most pronounced at L4-L5, L5-S1 Vaccines: Up-to-date with pneumonia vaccine, up-to-date with flu vaccine [facility] Medical History Back pain Lumbar spondylosis Surgical History History of selective injection of anesthetic agent around lumbar nerve root [place] teeth extracted Hx of tonsillectomy H/O splenectomy Family History Mother Skin cancer Father No problems noted. 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 [employer] Cognitive needs: No Hearing needs: No Vision needs: No Questionnaire Thrive Questionnaire Date Thrive assessed: 06/08/25 I am a: Patient What is your living situation today?: I have a steady place to live Within the past 12 months, did the food you bought not last and you didn't have the money to get more?: Never true Within the past 12 months, did you worry whether your food would run out before you got money to buy more?: Never true Do you have trouble paying for medicines?: No Do you have trouble getting transportation to medical appointments?: No Do you have trouble paying your heating and electricity bill?: No Do you have trouble taking care of your child, family member or friend?: No Do you have trouble with day-to-day activities such as bathing, preparing meals, shopping, managing finances, etc.?: No Are you currently unemployed and looking for a job?: No Are you interested in more education?: No Please select the resources that you would like help with: None Currently or been in a relationship where the following occur: No concerns reported THRIVE Score: 0 AUDIT C Alcohol Use Questionnaire (AUDIT-C) 1. How often do you have a drink containing alcohol?: Monthly or less 2. How many drinks containing alcohol do you have on a typical day when you are drinking?: 1 or 2 3. How often do you have six or more drinks on one occasion?: Never Total Score: 1 RASHI-7 AMB Questionnaire RASHI-7 Date RASHI - 7 assessed: 06/29/24 Source: Developed by Drs. Aleksandar Zamora, Kelsey Hamlin, Gian Schneider and colleagues, with an educational gardenia from [employer]. Review of Systems Const Denies body aches, Denies chills, Denies excessive sweating, Denies fatigue, Denies fever(s) and Denies headache(s) Eyes Denies blurry vision ENT Denies dysphagia, Denies vertigo, Denies dizziness, Denies headache(s), Denies hearing loss and Denies tinnitus Card Denies chest pain, Denies chest pain with activity, Denies syncope, Denies irregular heart rhythm and Denies dyspnea Resp Denies chest congestion, Denies cough, Denies hemoptysis, Denies dyspnea and Denies wheezing GI Denies abdominal pain, Denies melena, Denies hematochezia, Denies coffee ground emesis, Denies dysphagia, Denies diarrhea, Denies nausea and Denies vomiting Denies difficulty urinating, Denies dysuria, Denies urinary frequency, Denies urinary hesitancy and Denies urinary urgency Musc Denies arthralgias, Denies limited range of motion, Denies muscle cramps and Denies muscle weakness Skin/Breast Denies rash and Denies skin ulcer Neuro Denies Abnormal speech present, Denies confusion, Denies vertigo, Denies dizziness, Denies syncope, Denies headache(s), Denies memory loss and Denies seizure-like activity Psych Denies anxiety, Denies confusion, Denies depression, Denies memory loss, Denies panic attacks and Denies paranoia Endo Denies excessive sweating, Denies fatigue, Denies flushing, Denies polydipsia and Denies polyuria Aller/Immun Denies wheezing Physical exam (Primary Care) Vital Signs: Last Vital Signs Temp 97.1 F 06/30/25 08:53 Pulse 73 06/30/25 08:53 Resp 16 06/30/25 08:53 BP 110/72 06/30/25 08:53 Pulse Ox 98 06/30/25 08:53 Oxygen Delivery Method Room Air 06/30/25 08:53 BMI result Body Mass Index 32.1 Tobacco/Smoking Status: Tobacco use Status Tobacco use date assessed 06/15/25 06/30/25 08:58 Patient Tobacco Use Status Never used Tobacco 06/30/25 08:58 e-Cigarette/Vaping Use Never Used 06/30/25 08:58 Thrive Assessment: Date of Thrive Assessment Date Thrive assessed 06/08/25 06/30/25 08:58 Currently or been in a relationship where the following occur: No concerns reported Const General: cooperative, comfortable, no acute distress, alert and awake; No confusion Orientation/consciousness: oriented to person, oriented to place, patient oriented x3 and No confusion HENMT Head: Yes normocephalic Ears: external ears normal and TM's normal bilaterally Face and sinus: No sinus tenderness Mouth: Normal oral and palatal mucosa present and tongue normal Teeth and gingiva: dentition normal and gingiva normal Throat: Yes posterior oropharynx normal, Yes tonsils normal and Yes uvula midline Eyes Conjunctivae: conjunctivae normal Sclerae: sclerae normal Pupils: Equal, round and reactive pupils present EOM: EOMs intact bilaterally Direct Ophthalmoscopy: No no photophobia Neck Neck: Yes no lymphadenopathy, No tender and Yes no JVD Thyroid: Thyroid normal Carotids: no bruits Chest Chest palpation & inspection: no tenderness Resp Effort & Inspection: normal respiratory effort, no audible wheezes, not labored and no stridor Auscultation: no crackles, no rales, no rhonchi and no wheezes Cardio Jugular venous distension: no JVD Rate: regular rate, not bradycardic and not tachycardic Rhythm: regular rhythm Bruits: no carotid bruits Peripheral pulses: Peripheral pulses 2+ throughout GI Inspection: Yes normal to inspection, No abdominal wall ecchymosis and No visible herniation Palpation (GI): Soft to palpation, nontender, no guarding, not rigid and No hepatosplenomegaly present Auscultation: normoactive bowel sounds General: Yes no CVA tenderness Back/Spine/Pelvis Other: FULL RANGE OF MOTION OF THE LUMBAR SPINE, 5/5 STRENGTH TO RIGHT LOWER EXTREMITY Back: no CVA tenderness and No back tenderness Cervical Spine: cervical ROM normal Thoracic/Lumbar Spine: thoracic and lumbar spine normal to inspection, straight leg raise negative bilaterally, No thoraco-lumbar ROM limited and No lumbar spinal tenderness Skin Lesions: no lesions Rashes: no rashes Wounds: no wounds Neuro General: oriented to person, oriented to place, patient oriented x3, CN's II-XI intact bilaterally and No confusion Cranial nerves: Yes Equal, round and reactive pupils present and Yes Normal accommodation reflex present Cognition (Neuro): normal cognition Speech: No Abnormal speech present Gait exam (Neuro): Normal gait present Motor exam (neuro): 5/5 motor strength present throughout Extrem Right upper extremity: full ROM; no cyanosis Left upper extremity: full ROM; no cyanosis Right lower extremity: no edema Left lower extremity: no edema Psych Appearance: grossly normal Mental Status: mental status grossly normal Affect: normal affect Attitude: cooperative Thought process: Normal thought process present Coding Level of Care Code Est Pt Prev Care 40-64y(41202) Diagnoses Adult general medical exam Z00.00 Lumbar radiculopathy M54.16 Assessment & Plan Assessment & Plan (1) Adult general medical exam: Code(s): Z00.00 - Encounter for general adult medical examination without abnormal findings Category: Medical Plan: As per HPI (2) Lumbar radiculopathy: Code(s): M54.16 - Radiculopathy, lumbar region Category: Medical Plan: An MRI of the lumbar spine with and without contrast will be ordered to evaluate for a possible re-herniation, as his surgery was within the last 10 years. A referral will be placed to neuro-spine to see Dr. Romero for re-evaluation. For pain management, a 9-day steroid taper has been prescribed, consisting of three tablets for three days, two tablets for three days, and one tablet for three days. Additionally, a prescription for gabapentin 300 mg has been sent, to be taken twice daily as needed for nerve pain. Orders: Orders MR lumbar spine wo/w con Today M54.16 - Radiculopathy, lumbar region Referrals Neuro Spine Referral M54.16 - Radiculopathy, lumbar region Medications: New prednisone Take 3 tablets x3 days, 2 tablets x3 days, 1 tablet x3 days 10 mg PO DIRECTED 18 tabs 0RF 9 days M54.16 - Radiculopathy, lumbar region gabapentin 300 mg PO BID 60 caps 1RF 30 days M54.16 - Radiculopathy, lumbar region
[2025-06-30 08:53] VITALS: BP 110/72; PULSE 73; RESP 16; TEMP 36.2; O2SAT 98; BMI 32.1
== END 2025-06-30 09:22 | disposition home or self-care (01) ==
LOC: HO.HMCH 08:43
PROVIDERS: PCP Nurse Practitioner Family; Visit Provider Physician Assistant
DX: Z00.00 Encounter for general adult medical examination without abnormal findings (principal); M54.16 Radiculopathy, lumbar region